=== PATIENT | female | born 1995 | race Two or more races ===

== ENCOUNTER 2016-12-16 09:38 | Emergency (ER) | payer OTHER ==
[2016-12-16 09:45] VITALS: BP 138/92; PULSE 96; BMI 19.2
--- NOTE | 2016-12-16 09:49 | PDOC ---
History of Present Illness - General History Source: Patient Exam Limitations: No Limitations - History of Present Illness Initial Comments: 12/16/16 10:01 The patient is a 21 year old female, with significant past medical history of pericarditis, who presents today worried she overdosed on motrin. The patient states that she accidentally took 2400mg of motrin. She thought that she took four 200mg tablets, but took four 600mg tablets instead. She reports some abdominal discomfort, but attributes it to her menstrual period. Denies fever, chills, nausea, vomiting. Allergies: None reported PCP- Dr. Lilian Garcia <Julianne Andrade - Last Filed: 12/16/16 10:01> <Neela Roman - Last Filed: 12/16/16 10:19> - General Chief Complaint: Overdose Stated Complaint: OVERDOSE Time Seen by Provider: 12/16/16 09:47 Past History <Julianne Andrade - Last Filed: 12/16/16 10:01> - Past Medical History Anemia: Yes Asthma: No Cancer: No Cardiac Disorders: No (PERICARDITIS) Diabetes: No HTN: No Seizures: No Thyroid Disease: No - Reproductive History (#): 1 Para: 1 - Immunization History Immunization Up to Date: Yes - Psycho/Social/Smoking Cessation Hx Anxiety: No Suicidal Ideation: No Smoking Status: No Smoking History: Never smoked Have you smoked in the past 12 months: No Number of Cigarettes Smoked Daily: 0 Information on smoking cessation initiated: No Hx Alcohol Use: No Drug/Substance Use Hx: No Substance Use Type: None Hx Substance Use Treatment: No <Neela Roman - Last Filed: 12/16/16 10:19> - Past Medical History Allergies/Adverse Reactions: Allergies Allergy/AdvReac Type Severity Reaction Status Date / Time No Known Allergies Allergy Verified 12/16/16 10:00 Home Medications: Ambulatory Orders Pantoprazole Sodium [Protonix -] 20 mg PO DAILY #30 tablet.ec 11/23/16 Colchicine 0.6 mg PO BID #28 tablet 11/25/16 Ibuprofen [Motrin -] 400 mg PO TID 11/30/16 Review of Systems - Review of Systems Able to Perform ROS?: Yes Comments:: 12/16/16 10:01 GENERAL/CONSTITUTIONAL: No fever or chills. No weakness. HEAD, EYES, EARS, NOSE AND THROAT: No change in vision. No ear pain or discharge. No sore throat. CARDIOVASCULAR: No chest pain or shortness of breath. RESPIRATORY: No cough, wheezing, or hemoptysis. GASTROINTESTINAL: No nausea, vomiting, diarrhea or constipation. SKIN: No rash NEUROLOGIC: No headache, vertigo, loss of consciousness, or change in strength/ sensation. <AlyssaallegraJulianne - Last Filed: 12/16/16 10:01> *Physical Exam - Vital Signs Last Vital Signs Temp Pulse Resp BP Pulse Ox 96 H 20 138/92 100 12/16/16 09:41 12/16/16 09:41 12/16/16 09:41 12/16/16 09:41 - Physical Exam Comments: 12/16/16 10:01 GENERAL: Awake, alert, and fully oriented, in no acute distress HEAD: No signs of trauma EYES: PERRLA, EOMI, sclera anicteric, conjunctiva clear ENT: Auricles normal inspection, hearing grossly normal, nares patent, oropharynx clear without exudates. Moist mucosa NECK: Normal ROM, supple, no lymphadenopathy, JVD, or masses LUNGS: Breath sounds equal, clear to auscultation bilaterally. No wheezes, and no crackles HEART: Regular rate and rhythm, normal S1 and S2, no murmurs, rubs or gallops ABDOMEN: Soft, nontender, normoactive bowel sounds. No guarding, no rebound. No masses EXTREMITIES: Normal range of motion, no edema. No clubbing or cyanosis. No cords, erythema, or tenderness NEUROLOGICAL: Cranial nerves II through XII grossly intact. Normal speech, normal gait SKIN: Warm, Dry, normal turgor, no rashes or lesions noted. <Julianne Andrade - Last Filed: 12/16/16 10:01> - Vital Signs Last Vital Signs Temp Pulse Resp BP Pulse Ox 96 H 20 138/92 100 12/16/16 09:41 12/16/16 09:41 12/16/16 09:41 12/16/16 09:41 <Neela Roman - Last Filed: 12/16/16 10:19> Medical Decision Making - Medical Decision Making As per recommendations from poison control, no acute intervention. I will give antacid for stomach irritation. <Neela Roman - Last Filed: 12/16/16 10:19> *DC/Admit/Observation/Transfer - Attestations Scribe Attestion: 12/16/16 10:02 Documentation prepared by LISA Ramesh, acting as medical secretary teacher for Neela Roman MD. <Julianne Andrade - Last Filed: 12/16/16 10:01> - Discharge Dispostion Admit: No <Neela Roman - Last Filed: 12/16/16 10:19> Diagnosis at time of Disposition: Ibuprofen overdose Qualifiers: Encounter type: initial encounter Injury intent: accidental or unintentional Qualified Code(s): T39.311A - Poisoning by propionic acid derivatives, accidental (unintentional), initial encounter - Discharge Dispostion Disposition: HOME Condition at time of disposition: Stable - Referrals Referrals: Lilian Gonzales MD [Primary Care Provider] - - Patient Instructions Printed Discharge Instructions: Ibuprofen Additional Instructions: PEPCID NEEDED FOR STOMACH IRRITATION. AVOID MOTRIN TODAY.
[2016-12-16] MEDS ORDERED: RANITIDINE HCL 150 MG TABLET (FP) PO ONE (10:01)
[2016-12-16] MEDS ORDERED: RANITIDINE HCL 150 MG TABLET (FP) ONE (10:08)
[2016-12-16 10:30] VITALS: TEMP 97.9
== END 2016-12-16 10:35 | disposition home or self-care (01) ==
LOC: JER 09:38
DX: T39.311A Poisoning by propionic acid derivatives, accidental (unintentional), initial encounter (principal); R10.9 Unspecified abdominal pain; Y92.038 Other place in apartment as the place of occurrence of the external cause
CPT/HCPCS: 99282-25

== ENCOUNTER → 2017-04-09 | Emergency (ER) | payer OTHER ==
[~2017-04-09] MED LIST: SODIUM CHLORIDE 1,000 ML IV STA
[2017-04-09 22:03] VITALS: BP 129/71; PULSE 77; TEMP 97.9; BMI 18.4
--- NOTE | 2017-04-09 22:50 | PDOC ---
History of Present Illness - General Chief Complaint: Pain Stated Complaint: CHEST PAIN Time Seen by Provider: 04/09/17 21:56 History Source: Patient - History of Present Illness Initial Comments: 04/10/17 00:22 21 yo female with a history of pericarditis presents to the emergency department complaining of substernal 4/10 dull nonradiating intermittent discomfort 3 hours. Pain is exacerbated on movement and alleviated at rest. Patient denies any headache, lightheadedness, dizziness, fever, chills, nausea/ vomiting/diarrhea, jaw pains, neck pains, shortness of breath, abdominal pains, flank pains, urinary symptoms. Patient states she was diagnosed with pericarditis in March 2017. She is currently under the care of her gill net stringer: Dr. Anya Del Rio. Patient usually takes ibuprofen or colchicine for her pericarditis. Patient states she notified her gill net stringer's and will have a follow-up tomorrow. Past History - Past Medical History Allergies/Adverse Reactions: Allergies Allergy/AdvReac Type Severity Reaction Status Date / Time lactose Allergy Severe Vomiting Verified 04/09/17 21:50 No Known Drug Allergies Allergy Verified 04/09/17 21:50 Home Medications: Ambulatory Orders Ferrous Sulfate [Feosol] 325 mg PO DAILY 04/09/17 Norgestimate-Ethinyl Estradiol [Sprintec 28 Day Tablet] 1 each PO DAILY Anemia: Yes (iron deficiency) Asthma: No Cancer: No Cardiac Disorders: Yes (Pericarditis 10/2016) Diabetes: No HTN: No Seizures: No Thyroid Disease: No - Reproductive History Is Patient Now?: No (#): 1 Para: 1 - Immunization History Immunization Up to Date: Yes - Psycho/Social/Smoking Cessation Hx Anxiety: No Suicidal Ideation: No Smoking Status: No Smoking History: Never smoked Have you smoked in the past 12 months: No Number of Cigarettes Smoked Daily: 0 Hx Alcohol Use: No Drug/Substance Use Hx: No Substance Use Type: None Hx Substance Use Treatment: No Review of Systems - Review of Systems Able to Perform ROS?: Yes Comments:: 04/10/17 00:24 CONSTITUTIONAL: Absent: fever, chills, diaphoresis, generalized weakness, malaise, loss of appetite HEENT: Absent: rhinorrhea, nasal congestion, throat pain, throat swelling, difficulty swallowing, mouth swelling, ear pain, eye pain, visual Changes CARDIOVASCULAR: +CP Absent: loss of consciousness, palpitations, irregular heart rate, peripheral edema RESPIRATORY: Absent: cough, shortness of breath, dyspnea with exertion, orthopnea, wheezing, stridor, hemoptysis GASTROINTESTINAL: Absent: abdominal pain, abdominal distension, nausea, vomiting, diarrhea, constipation, melena, hematochezia GENITOURINARY: Absent: dysuria, frequency, urgency, hesitancy, hematuria, flank pain, genital pain MUSCULOSKELETAL: Absent: myalgia, arthralgia, joint swelling SKIN: Absent: rash, itching, pallor HEMATOLOGIC/IMMUNOLOGIC: Absent: easy bleeding, easy bruising, lymphadenopathy, frequent infections ENDOCRINE: Absent: unexplained weight gain, unexplained weight loss, heat intolerance, cold intolerance NEUROLOGIC: Absent: headache, focal weakness or paresthesias, dizziness, unsteady gait, seizure, mental status changes, bladder or bowel incontinence PSYCHIATRIC: Absent: anxiety, depression, suicidal or homicidal ideation, hallucinations. Is the patient limited Yoruba proficient: No *Physical Exam - Vital Signs Last Vital Signs Temp Pulse Resp BP Pulse Ox 97.9 F 77 18 129/71 100 04/09/17 21:50 04/09/17 21:50 04/09/17 21:50 04/09/17 21:50 04/09/17 21:50 - Physical Exam Comments: 04/10/17 00:24 GENERAL: Well developed, well nourished. Awake and alert. No acute distress. HEENT: Normocephalic, atraumatic. PERRLA, EOMI. No conjunctival pallor. Sclera are non- icteric. Moist mucous membranes. Oropharynx is clear. NECK: Supple. Full ROM. No JVD. Carotid pulses 2+ and symmetric, without bruits. No thyromegaly. No lymphadenopathy. CARDIOVASCULAR Regular rate and rhythm. No murmurs, rubs, or gallops. Distal pulses are 2+ and symmetric. PULMONARY: No evidence of respiratory distress. Lungs clear to auscultation bilaterally. No wheezing, rales or rhonchi. ABDOMINAL: Soft. Non-tender. Non-distended. No rebound or guarding. No organomegaly. Normoactive bowel sounds. MUSCULOSKELETAL Normal range of motion at all joints. No bony deformities or tenderness. No CVA tenderness. EXTREMITIES: No cyanosis. No clubbing. No edema. No calf tenderness. SKIN: Warm and dry. Normal capillary refill. No rashes. No jaundice. NEUROLOGICAL: Alert, awake, appropriate. Cranial nerves 2-12 intact. No deficits to light touch and temperature in face, upper extremities and lower extremities. No motor deficits in the in face, upper extremities and lower extremities. Normoreflexic in the upper and lower extremities. Normal speech. Toes are down- going bilaterally. Gait is normal without ataxia. PSYCHIATRIC: Cooperative. Good eye contact. Appropriate mood and affect. ED Treatment Course - LABORATORY CBC & Chemistry Diagram: 04/09/17 23:15 04/09/17 23:15 - ADDITIONAL ORDERS Additional order review: Laboratory Results 04/09/17 04/09/17 23:15 23:15 Sodium 140 Potassium 4.0 Chloride 102 Carbon Dioxide 25 Anion Gap 13 BUN 10 D Creatinine 0.7 Creat Clearance w eGFR > 60 Random Glucose 82 Calcium 8.9 Total Bilirubin 0.3 D AST 19 D ALT 19 D Alkaline Phosphatase 89 D Creatine Kinase 81 Troponin I < 0.02 Total Protein 8.3 H Albumin 3.9 Urine Color Ltyellow Urine Appearance Clear Urine pH 6.0 Urine Protein Negative Urine Glucose (UA) Negative Urine Ketones Negative Urine Blood Negative Urine Nitrite Negative Urine Bilirubin Negative Urine Urobilinogen Negative Ur Leukocyte Esterase Trace H D Urine RBC <1 Urine WBC 9 Ur Epithelial Cells Rare Urine Mucus Rare Urine HCG, Qual Negative 04/09/17 23:15 RBC 3.49 L MCV 76.1 L MCHC 30.4 L RDW 17.1 H MPV 8.1 D Neutrophils % 67.5 Lymphocytes % 26.0 Monocytes % 5.6 Eosinophils % 0.4 Basophils % 0.5 - Medications Given in the ED: ED Medications Discontinued Medications Generic Name Dose Route Start Last Admin Trade Name Freq PRN Reason Stop Dose Admin Sodium Chloride 1,000 mls @ 1,000 mls/hr 04/09/17 22:53 04/09/17 23:13 Normal Saline - IV 04/09/17 23:52 1,000 mls/hr ASDIR STA Administration *DC/Admit/Observation/Transfer Diagnosis at time of Disposition: Atypical chest pain Anemia Qualifiers: Anemia type: other cause Other causes of anemia: other cause, not classified Qualified Code(s): D64.89 - Other specified anemias - Discharge Dispostion Disposition: HOME Condition at time of disposition: Stable Admit: No - Referrals Referrals: Lilian Gonzales MD [Primary Care Provider] - Jackie Olvera MD [Staff Physician] - - Patient Instructions Printed Discharge Instructions: DI for Atypical Chest Pain Additional Instructions: Be sure to follow-up with your gill net stringer: Dr. Anya Olvera tomorrow. ibuprofen as needed for painw. Return back to the emergency department for severe/persistent or worsening symptoms - Post Discharge Activity Work/School Note: Back to Work
[2017-04-09 23:28] LABS: BASOPHIL 0.5 % (0-2.0); EOSINOPHIL 0.4 % (0-4.5); MCH 23.1 pg (25.7-33.7); MCHC 30.4 g/dl (32.0-36.0); MEAN CELL VOLUME 76.1 fl (80-96); MEAN PLT VOLUME 8.1 fl (7.5-11.1); NEUTROPHILS 67.5 % (42.8-82.8); PLATELET COUNT 266 K/MM3 (134-434); RDW 17.1 % (11.6-15.6); WHITE BLOOD COUNT 5.2 K/mm3 (4.0-10.0)
[2017-04-09 23:32] LABS: URINE APPEARANCE CLEAR; URINE BILIRUBIN NEGATIVE (NEGATIVE); URINE BLOOD NEGATIVE (NEGATIVE); URINE COLOR LTYELLOW; URINE GLUCOSE (UA) NEGATIVE (NEGATIVE); URINE KETONE NEGATIVE (NEGATIVE); URINE LEUK ESTERASE TRACE (NEGATIVE); URINE NITRITE NEGATIVE (NEGATIVE); URINE PROTEIN NEGATIVE (NEGATIVE); URINE UROBILINOGEN NEGATIVE E.U./dl (0.2-1.0)
--- NOTE | 2017-04-09 23:32 | PDOC ---
*Physical Exam - Vital Signs Last Vital Signs Temp Pulse Resp BP Pulse Ox 97.9 F 77 18 129/71 100 04/09/17 21:50 04/09/17 21:50 04/09/17 21:50 04/09/17 21:50 04/09/17 21:50 ED Treatment Course - LABORATORY CBC & Chemistry Diagram: 04/09/17 23:15 04/09/17 23:15 Medical Decision Making - Medical Decision Making 04/09/17 23:30 agree with care from NARENDRA Martinez *DC/Admit/Observation/Transfer Diagnosis at time of Disposition: Atypical chest pain, Anemia - Discharge Dispostion Disposition: HOME Condition at time of disposition: Stable - Referrals Referrals: Jackie Olvera MD [Staff Physician] - Lilian Gonzales MD [Primary Care Provider] - - Patient Instructions Printed Discharge Instructions: DI for Atypical Chest Pain Additional Instructions: Be sure to follow-up with your safety supervisor: Dr. Anya Olvera tomorrow. ibuprofen as needed for painw. Return back to the emergency department for severe/persistent or worsening symptoms - Post Discharge Activity Work/School Note: Back to Work
[2017-04-09 23:37] LABS: URINE MUCUS RARE; URINE RBC <1 /hpf (0-3); URINE WBC 9 /hpf (3-5)
[2017-04-10 00:10] LABS: ALBUMIN 3.9 g/dl (3.4-5.0); ANION GAP 13 (8-16); BILIRUBIN,TOTAL 0.3 mg/dL (0.2-1.0); CALCIUM 8.9 mg/dL (8.5-10.1); CO2 25 mmol/L (21-32); CREATININE 0.7 mg/dL (0.55-1.02); GLUCOSE,RANDOM 82 mg/dL (74-106); SGOT/AST 19 U/L (15-37); SGPT/ALT 19 U/L (12-78); TOT PROT 8.3 g/dl (6.4-8.2)
[2017-04-10 00:12] LABS: ALK PHOS 89 U/L (45-117); TROPONIN I < 0.02 ng/ml (0.00-0.05)
--- NOTE | 2017-04-14 12:58 | EKG ---
Test Reason : Blood Pressure : / mmHG Vent. Rate : 081 BPM Atrial Rate : 081 BPM P-R Int : 142 ms QRS Dur : 082 ms QT Int : 372 ms P-R-T Axes : 076 060 040 degrees QTc Int : 432 ms NORMAL SINUS RHYTHM NONSPECIFIC T WAVE ABNORMALITY ABNORMAL ECG WHEN COMPARED WITH ECG OF 30-NOV-2016 15:46, NO SIGNIFICANT CHANGE WAS FOUND Confirmed by GURU WOLFE MD ([id number]) on 04/14/2017 12:57:47 PM Referred By: Confirmed By:GURU WOLFE MD
== END | disposition home or self-care (01) ==
LOC: JER 21:44
PROC: 3E0337Z Introduction of Electrolytic and Water Balance Substance into Peripheral Vein, Percutaneous Approach (ICD-10-PCS; principal; 2017-04-09)
DX: R07.89 Other chest pain (principal); I31.9 Disease of pericardium, unspecified; D50.8 Other iron deficiency anemias
CPT/HCPCS: 36415; 80053; 81003; 81015; 82550; 84484; 84703; 85025; 93005; 93010; 99282-25

== ENCOUNTER 2017-06-11 09:46 | Emergency (ER) | payer OTHER ==
[2017-06-11 10:00] VITALS: TEMP 98; BMI 19.0
--- NOTE | 2017-06-11 10:30 | PDOC ---
History of Present Illness - General Chief Complaint: Shortness of Breath Stated Complaint: CHEST PAIN Time Seen by Provider: 06/11/17 10:15 History Source: Patient - History of Present Illness Initial Comments: 06/11/17 11:24 Patient is a 21-year-old female with past medical history of anemia, who presents to the emergency department today complaining of shortness of breath and anxiety. Patient states that earlier this morning her boyfriend went missing after making suicidal comments. She became very anxious and nervous while the police were out finding him. . She states that her breathing became very rapid and she felt short of breath and lightheaded. Admits to chest pain as well. He was found a couple hours later and is being treated at a different facility at this time. She states that she feels better now that he is safe, but is still anxious. Denies fevers, chills, palpitations, wheezing, cough, recent illness, suicidal ideations. Past History - Travel Traveled outside of the country in the last 30 days: No Close contact w/someone who was outside of country & ill: No - Past Medical History Allergies/Adverse Reactions: Allergies Allergy/AdvReac Type Severity Reaction Status Date / Time lactose Allergy Severe Vomiting Verified 06/11/17 09:57 No Known Drug Allergies Allergy Verified 06/11/17 09:57 Home Medications: Ambulatory Orders Norgestimate-Ethinyl Estradiol [Sprintec 28 Day Tablet] 1 each PO DAILY Anemia: Yes (iron deficiency) Asthma: No Cancer: No Cardiac Disorders: Yes (Pericarditis 10/2016) Diabetes: No HTN: No Seizures: No Thyroid Disease: No - Reproductive History (#): 1 Para: 1 - Immunization History Immunization Up to Date: Yes - Psycho/Social/Smoking Cessation Hx Anxiety: No Suicidal Ideation: No Smoking Status: No Smoking History: Never smoked Have you smoked in the past 12 months: No Number of Cigarettes Smoked Daily: 0 Information on smoking cessation initiated: No Hx Alcohol Use: No Drug/Substance Use Hx: No Substance Use Type: None Hx Substance Use Treatment: No Review of Systems - Review of Systems Able to Perform ROS?: Yes Is the patient limited Turkish proficient: No Constitutional: Yes: Weakness. No: Chills, Fever, Malaise Respiratory: Yes: Shortness of Breath, SOB with Exertion, SOB at Rest. No: Wheezing Cardiac (ROS): Yes: Lightheadedness, Chest Tightness. No: Chest Pain, Irregular Heart Rate, Palpitations ABD/GI: No: Diarrhea, Nausea, Vomiting Psychiatric: Yes: Anxiety. No: Depression All Other Systems: Reviewed and Negative *Physical Exam - Vital Signs Last Vital Signs Temp Pulse Resp BP Pulse Ox 98.0 F 79 18 113/71 100 06/11/17 09:57 06/11/17 09:57 06/11/17 09:57 06/11/17 09:57 06/11/17 09:57 - Physical Exam General Appearance: Yes: Nourished, Appropriately Dressed, Mild Distress (Pt. appears mildly anxious, fast speech, fair eye contact. Speaking in full sentences Breathing easily O2 sat 100 on monitor) HEENT: positive: EOMI, DIO, Normal Voice. negative: Pharyngeal Erythema, Tonsillar Exudate, Tonsillar Erythema Respiratory/Chest: positive: Lungs Clear, Normal Breath Sounds. negative: Chest Tender, Respiratory Distress, Accessory Muscle Use, Rales, Rhonchi, Wheezing Cardiovascular: positive: Regular Rhythm, Regular Rate, S1, S2 (present). negative: Murmur ED Treatment Course - LABORATORY CBC & Chemistry Diagram: 06/11/17 10:51 06/11/17 10:51 Medical Decision Making - Medical Decision Making 06/11/17 11:30 Patient is a 21-year-old female with past medical history of anemia, who presents to the emergency department today complaining of shortness of breath and anxiety. Patient states that she feels better since arriving at the hospital now that she knows her boyfriend is safe. States that her anxiety is still present at this time. Will draw a CBC to evaluate her anemia. Pt. states her hbg is usually between 7-8. 1. CBC, CMP 2. EKG 3. Ativan, emotional support 4. Re-evaluate 06/11/17 12:46 All lab work is normal this time. Most probable anxiety attack stress of her situation last night. Patient is feeling better with the Ativan. Very overwhelmed with home and school work. Patient and I had a long discussion on mental health counseling and making time for herself. Instructed patient to follow up with her primary care doctor and her counselor tomorrow. Patient is safe to go home denies suicidal ideation homicidal ideation, depression and has no plan to commit suicide. Patient has a good support system. Discharge home at this time. *DC/Admit/Observation/Transfer Diagnosis at time of Disposition: Panic attack as reaction to stress - Discharge Dispostion Admit: No - Referrals Referrals: Lilian Gonzales MD [Primary Care Provider] - Call tomorrow Tate Antoine MD [Staff Physician] - - Patient Instructions Printed Discharge Instructions: DI for Anxiety -- Adult Additional Instructions: You had a panic attack today. It is important that you take time for self care and relaxation. Follow up with your primary care doctor and therapist tomorrow. It is important that you speak with them regarding your visit today. Your lab work today showed a low hemoglobin. You were given a referral for a shipfitter. Call to set up an appointment. Return to the ED if you have worsening panic attacks, anxiety, depression, or suicidal thoughts.
[2017-06-11] MEDS ORDERED: LORazepam 0.5 MG TABLET PO ONE (10:44)
[2017-06-11] MEDS ORDERED: LORazepam 0.5 MG TABLET ONE (10:49)
[2017-06-11 11:02] LABS: BASOPHIL 0.4 % (0-2.0); EOSINOPHIL 0.1 % (0-4.5); MCH 23.4 pg (25.7-33.7); MCHC 31.1 g/dl (32.0-36.0); MEAN PLT VOLUME 7.8 fl (7.5-11.1); NEUTROPHILS 70.8 % (42.8-82.8); PLATELET COUNT 182 K/MM3 (134-434); RDW 18.2 % (11.6-15.6); WHITE BLOOD COUNT 3.4 K/mm3 (4.0-10.0)
--- NOTE | 2017-06-11 11:07 | PDOC ---
Attending Attestation - Resident Resident Name: Elvira Patton - ED Attending Attestation I have performed the following: I have examined & evaluated the patient, The case was reviewed & discussed with the resident, I agree w/resident's findings & plan, Exceptions are as noted - HPI HPI: 21y F hx of anemia presenting with sob, although pt also notes that she has been ahvnig alot of personal stressors via her boyfriend. Pt denies any cp, fever/chills, cough, nor exertional symptoms, leg swelling, hemoptysis. pts exam esentially normal beside mild anxiety. no si/hi. pts labs reviewed, noted for mild anemia, but doubt this is the cause of her symptoms as this is her baseline. pt was dc with pmd fu feeling improved after anxiolytic. - Physicial Exam PE: 06/13/17 19:21 see above - Medical Decision Making 06/13/17 19:21 see above Heart Score/ECG Review - ECG Impressions Comment:: 06/11/17 11:09 Twelve-lead EKG was performed and reviewed by me. There is normal sinus rhythm with a normal rate. rate of 79 The axis is normal. The intervals are normal. There is normal R wave progression Nonspecifc t wave abnormality
[2017-06-11 11:34] LABS: ALBUMIN 3.5 g/dl (3.4-5.0); ANION GAP 9 (8-16); BILIRUBIN,TOTAL 0.6 mg/dL (0.2-1.0); CALCIUM 8.4 mg/dL (8.5-10.1); CO2 26 mmol/L (21-32); CREATININE 0.7 mg/dL (0.55-1.02); GLUCOSE,RANDOM 84 mg/dL (74-106); SGOT/AST 15 U/L (15-37); SGPT/ALT 15 U/L (12-78); TOT PROT 7.4 g/dl (6.4-8.2)
[2017-06-11 11:35] LABS: ALK PHOS 68 U/L (45-117)
[2017-06-11 14:20] VITALS: BP 128/77; PULSE 77
--- NOTE | 2017-06-12 13:12 | EKG ---
Test Reason : Blood Pressure : / mmHG Vent. Rate : 079 BPM Atrial Rate : 079 BPM P-R Int : 142 ms QRS Dur : 076 ms QT Int : 396 ms P-R-T Axes : 081 059 032 degrees QTc Int : 454 ms NORMAL SINUS RHYTHM NONSPECIFIC T WAVE ABNORMALITY ABNORMAL ECG WHEN COMPARED WITH ECG OF 09-APR-2017 21:53, NO SIGNIFICANT CHANGE WAS FOUND Confirmed by TITA CAVANAUGH MD ([id number]) on 06/12/2017 1:11:43 PM Referred By: Confirmed By:TITA CAVANAUGH MD
== END 2017-06-11 14:20 | disposition home or self-care (01) ==
LOC: JER 09:46
DX: F43.0 Acute stress reaction (principal); D64.9 Anemia, unspecified
CPT/HCPCS: 36415; 80053; 85025; 93005; 93010; 99284-25

== ENCOUNTER 2017-07-05 22:52 | Emergency (ER) | payer OTHER ==
[2017-07-05 23:07] VITALS: BP 112/68; PULSE 84; TEMP 98.1; BMI 18.4
--- NOTE | 2017-07-06 00:16 | PDOC ---
History of Present Illness - General History Source: Patient Exam Limitations: No Limitations <April Dong - Last Filed: 07/06/17 02:17> <Carlos Camacho - Last Filed: 07/06/17 02:50> - General Chief Complaint: Chest Pain Stated Complaint: CHEST PAIN Time Seen by Provider: 07/05/17 23:54 - History of Present Illness Initial Comments: 07/06/17 00:49 The patient is a 21 year old female, with a significant past medical history of Anemia, Pericarditis (10/2016) who presents to the emergency department with substernal chest pain today. Patient reports reproducible intermittent chest pain radiating to her L arm with associated cough and lightheadedness. Patient reports taking 800 mg Motrin today however denies relief. Patient states she experienced this pain when she was diagnosed with Pericarditis in Oct 2016 and presents to the ED for further evaluation. Note: Patient visited Dr. Morton (Workers' Compensation Claims Supervisor) earlier this week for the same complaint and was prescribed 800 Ibuprofen for pain relief. As per patient, she is due for echocardiogram next week. She denies fever, chills, abdominal pain, nausea, vomit, diarrhea or constipation. She denies dysuria, frequency, urgency or hematuria. Allergies: Lactose Past surgical history: None Social history:None PCP: Dr. Lilian Correa (April Dong) Past History <April Dong - Last Filed: 07/06/17 02:17> - Past Medical History Anemia: Yes (iron deficiency) Asthma: No Cancer: No Cardiac Disorders: Yes (Pericarditis 10/2016) Diabetes: No HTN: No Seizures: No Thyroid Disease: No - Reproductive History (#): 1 Para: 1 - Immunization History Immunization Up to Date: Yes - Psycho/Social/Smoking Cessation Hx Anxiety: No Suicidal Ideation: No Smoking Status: No Smoking History: Never smoked Have you smoked in the past 12 months: No Number of Cigarettes Smoked Daily: 0 Information on smoking cessation initiated: No Hx Alcohol Use: No Drug/Substance Use Hx: No Substance Use Type: None Hx Substance Use Treatment: No <Carlos Camacho - Last Filed: 07/06/17 02:50> - Past Medical History Allergies/Adverse Reactions: Allergies Allergy/AdvReac Type Severity Reaction Status Date / Time lactose Allergy Severe Vomiting Verified 07/05/17 23:05 No Known Drug Allergies Allergy Verified 07/05/17 23:05 Home Medications: Ambulatory Orders Norgestimate-Ethinyl Estradiol [Sprintec 28 Day Tablet] 1 each PO DAILY Tramadol HCl 50 mg PO TID #20 tablet MDD 3 07/06/17 Review of Systems - Review of Systems Able to Perform ROS?: Yes <April Dong - Last Filed: 07/06/17 02:17> <Carlos Camacho - Last Filed: 07/06/17 02:50> - Review of Systems Comments:: 07/06/17 00:49 CONSTITUTIONAL: No fever, no chills, no fatigue EYES: No visual changes ENT: No ear pain, no sore throat CARDIOVASCULAR: +chest pain. No palpitations RESPIRATORY: + cough. No SOB GI: No abdominal pain, no nausea, no vomiting, no constipation, no diarrhea GENITOURINARY: No dysuria, no frequency, no hematuria MUSKULOSKELETAL: No back pain, no joint pain, no myalgias SKIN: No rash NEURO: No headache (April Dong) *Physical Exam <April Dong - Last Filed: 07/06/17 02:17> <Carlos Camacho - Last Filed: 07/06/17 02:50> - Vital Signs Last Vital Signs Temp Pulse Resp BP Pulse Ox 98.1 F 84 20 112/68 100 07/05/17 23:06 07/05/17 23:06 07/05/17 23:06 07/05/17 23:06 07/05/17 23:06 - Physical Exam Comments: 07/06/17 00:49 CONSTITUTIONAL: Well-appearing; well-nourished; in no apparent distress HEAD: Normocephalic; atraumatic EYES: PERRL; EOM intact ENMT: External appears normal; normal oropharynx NECK: Supple; nontender; no cervical lymphadenopathy CARD: +Reproducible L parasternal chest tenderness to palpation. Normal S1, S2; no murmurs, rubs, or gallops RESP: Normal chest excursion with respiration; breath sounds clear and equal bilaterally; no wheezes, rhonchi, or rales ABD: Soft, non-distended; non-tender; no palpable organomegaly, no palpable hernias EXT: Normal ROM in all four extremities; non-tender to palpation; distal pulses intact SKIN: Warm, dry, no rash NEURO: No focal neurological deficiencies. (April Dong) ED Treatment Course - LABORATORY CBC & Chemistry Diagram: 07/06/17 00:59 07/06/17 00:59 <April Dong - Last Filed: 07/06/17 02:17> - LABORATORY CBC & Chemistry Diagram: 07/06/17 00:59 07/06/17 00:59 <Carlos Camacho - Last Filed: 07/06/17 02:50> - ADDITIONAL ORDERS Additional order review: Laboratory Results 07/06/17 07/06/17 07/06/17 02:05 00:59 00:59 INR 1.12 D-Dimer < 200 Sodium 138 Potassium 4.1 Chloride 104 Carbon Dioxide 27 Anion Gap 7 L BUN 9 D Creatinine 0.7 Creat Clearance w eGFR > 60 Random Glucose 98 Calcium 8.3 L Total Bilirubin 0.4 D AST 10 L D ALT 13 Alkaline Phosphatase 70 Creatine Kinase 41 Troponin I < 0.02 C-Reactive Protein 0.5 H D Total Protein 7.3 Albumin 3.3 L Urine HCG, Qual 07/05/17 23:08 INR D-Dimer Sodium Potassium Chloride Carbon Dioxide Anion Gap BUN Creatinine Creat Clearance w eGFR Random Glucose Calcium Total Bilirubin AST ALT Alkaline Phosphatase Creatine Kinase Troponin I C-Reactive Protein Total Protein Albumin Urine HCG, Qual Negative 07/06/17 00:59 RBC 3.18 L MCV 76.0 L MCHC 31.9 L RDW 19.5 H MPV 8.6 D Neutrophils % 62.1 Lymphocytes % 28.8 D Monocytes % 7.8 Eosinophils % 0.9 D Basophils % 0.4 - RADIOLOGY Radiology Studies Ordered: Category Date Time Status CHEST PA & LAT [RAD] Stat Radiology 07/06/17 00:36 Taken - Medications Given in the ED: ED Medications Discontinued Medications Generic Name Dose Route Start Last Admin Trade Name Freq PRN Reason Stop Dose Admin Tramadol HCl 50 mg 07/06/17 02:39 07/06/17 02:43 Ultram - PO 07/06/17 02:40 50 mg ONCE ONE Administration Medical Decision Making <April Dong - Last Filed: 07/06/17 02:17> <Carlos Camacho - Last Filed: 07/06/17 02:50> - Medical Decision Making 07/06/17 02:[address] Doug Webster. rate 84 bpm NSR Nonspecific T ave abnormality IL Interval 136 ms QRS Duration 80 ms QT/QTc 356/420 P-R-T axes 77 70 47 (April Dong) 07/06/17 02:41 Patient is well-appearing 21-year-old female with history of chronic anemia and recurrent pericarditis who presents to the ER with pleuritic left sided chest discomfort that is exacerbated by supine positioning and improved while sitting up. Patient reports that her symptoms are similar in nature to the episodes of pericarditis in the past. In the ER, patient is awake and alert, afebrile, hemodynamically stable. Physical exam reveals no evidence of pericardial friction rub. There is no JVD. EKG reveals no evidence of ST segment elevation or IL depression; chest x-ray reveals no evidence of cardiomegaly/effusion/ pneumothorax. Patient is a low probability for PE by Wells criteria. D-dimer was noted to be less than 200. Bedside echocardiogram revealed minimal anterior fluid only without evidence of right ventricular compromise. We'll administer tramadol for pain control. Will discharge with cardiology follow-up within the next 48-72 hours. (Carlos Camacho) *DC/Admit/Observation/Transfer <April Dong - Last Filed: 07/06/17 02:17> <Carlos Camacho - Last Filed: 07/06/17 02:50> Diagnosis at time of Disposition: Atypical chest pain - Discharge Dispostion Disposition: HOME Condition at time of disposition: Stable - Referrals Referrals: Lilian Gonzales MD [Primary Care Provider] - Jackie Olvera MD [Staff Physician] - - Patient Instructions Printed Discharge Instructions: DI for Atypical Chest Pain - Post Discharge Activity Work/School Note: Back to Work - Attestations Scribe Attestion: 07/06/17 00:50 Documentation prepared by April Dong, acting as medical editor for Carlos Camacho MD (April Dong) Physician Attestion: 07/06/17 02:41 The documentation was prepared by the scribe under my direct supervision. I have reviewed the documentation which correctly represents the findings, medical decision-making and critical action taken by me. (Carlos Camacho)
[2017-07-06 01:16] LABS: BASOPHIL 0.4 % (0-2.0); EOSINOPHIL 0.9 % (0-4.5); MCH 24.3 pg (25.7-33.7); MCHC 31.9 g/dl (32.0-36.0); MEAN PLT VOLUME 8.6 fl (7.5-11.1); NEUTROPHILS 62.1 % (42.8-82.8); PLATELET COUNT 195 K/MM3 (134-434); RDW 19.5 % (11.6-15.6); WHITE BLOOD COUNT 4.6 K/mm3 (4.0-10.0)
[2017-07-06 01:39] LABS: INR 1.12 (0.82-1.09); PROTHROMBIN TIME (PATIENT) 12.3 SEC (9.98-11.88)
[2017-07-06 02:06] LABS: ALBUMIN 3.3 g/dl (3.4-5.0); ALK PHOS 70 U/L (45-117); ANION GAP 7 (8-16); BILIRUBIN,TOTAL 0.4 mg/dL (0.2-1.0); C-REACTIVE PROTEIN 0.5 MG/DL (0.00-0.3); CALCIUM 8.3 mg/dL (8.5-10.1); CO2 27 mmol/L (21-32); CPK 41 IU/L (26-192); CREATININE 0.7 mg/dL (0.55-1.02); GLUCOSE,RANDOM 98 mg/dL (74-106); SGOT/AST 10 U/L (15-37); SGPT/ALT 13 U/L (12-78); TOT PROT 7.3 g/dl (6.4-8.2)
[2017-07-06 02:08] LABS: TROPONIN I < 0.02 ng/ml (0.00-0.05)
[2017-07-06] MEDS ORDERED: traMADol HCL 50 MG TABLET PO ONE (02:39)
[2017-07-06] MEDS ORDERED: traMADol HCL 50 MG TABLET ONE (02:41)
[2017-07-06 03:32] LABS: ERYTHROCYTE SEDIMENTATION RATE 14 mm/hr (0-20)
--- NOTE | 2017-07-07 13:42 | EKG ---
Test Reason : Blood Pressure : / mmHG Vent. Rate : 084 BPM Atrial Rate : 084 BPM P-R Int : 136 ms QRS Dur : 080 ms QT Int : 356 ms P-R-T Axes : 077 070 047 degrees QTc Int : 420 ms NORMAL SINUS RHYTHM NONSPECIFIC T WAVE ABNORMALITY ABNORMAL ECG WHEN COMPARED WITH ECG OF 11-JUN-2017 10:13, T WAVE VARIATION Confirmed by GURU WOLFE MD ([id number]) on 07/07/2017 1:42:15 PM Referred By: Confirmed By:GURU WOLFE MD
== END 2017-07-06 02:54 | disposition home or self-care (01) ==
LOC: JER 22:52
DX: R07.89 Other chest pain (principal); D50.9 Iron deficiency anemia, unspecified; Z86.79 Personal history of other diseases of the circulatory system
CPT/HCPCS: 36415; 71020-TC; 80053; 84484; 84703; 85025; 85379; 85610; 85651; 86140; 93005; 93010; 99283-25

== ENCOUNTER 2017-07-23 19:10 | Inpatient (IN) | payer OTHER ==
[2017-07-23 19:25] VITALS: BMI 18.0
[2017-07-23] MEDS ORDERED: SODIUM CHLORIDE 0.9% 1000 ML INFUS.BAG IV ONE (19:40)
[2017-07-23] MEDS ORDERED: morphine CARPU-JECT 4 MG/1 ML DISP.SYRIN IVPUSH ONE (19:40)
[2017-07-23 19:50] LABS: BASOPHIL 0.4 % (0-2.0); MCHC 31.2 g/dl (32.0-36.0); MEAN CELL VOLUME 76.9 fl (80-96); MEAN PLT VOLUME 9.2 fl (7.5-11.1); NEUTROPHILS 82.5 % (42.8-82.8); PLATELET COUNT 296 K/MM3 (134-434); RDW 19.5 % (11.6-15.6); WHITE BLOOD COUNT 9.3 K/mm3 (4.0-10.0)
[2017-07-23] MEDS ORDERED: morphine CARPU-JECT 2 MG/1 ML DISP.SYRIN ONE (20:16)
[2017-07-23 20:37] LABS: ALBUMIN 3.9 g/dl (3.4-5.0); ANION GAP 11 (8-16); BILIRUBIN,TOTAL 0.7 mg/dL (0.2-1.0); CALCIUM 8.9 mg/dL (8.5-10.1); CO2 26 mmol/L (21-32); CREATININE 0.9 mg/dL (0.55-1.02); GLUCOSE,RANDOM 130 mg/dL (74-106); SGOT/AST 13 U/L (15-37); SGPT/ALT 19 U/L (12-78); TOT PROT 8.2 g/dl (6.4-8.2)
[2017-07-23 20:38] LABS: ALK PHOS 76 U/L (45-117); URINE APPEARANCE TURBID; URINE BILIRUBIN NEGATIVE (NEGATIVE); URINE BLOOD 2+ (NEGATIVE); URINE COLOR AMBER; URINE GLUCOSE (UA) NEGATIVE (NEGATIVE); URINE KETONE NEGATIVE (NEGATIVE); URINE NITRITE NEGATIVE (NEGATIVE); URINE UROBILINOGEN NEGATIVE mg/dL (0.2-1.0)
[2017-07-23 20:53] LABS: URINE LEUK ESTERASE 3+ (NEGATIVE); URINE PROTEIN 3+ (NEGATIVE)
[2017-07-23 20:57] LABS: URINE MUCUS MANY; URINE RBC 498 /hpf (0-3); URINE WBC 1648 /hpf (3-5)
[2017-07-23] MEDS ORDERED: ACETAMINOPHEN 325 MG TABLET (FP) PO ONE (21:11)
[2017-07-23] MEDS ORDERED: ACETAMINOPHEN 325 MG TABLET (FP) ONE ×2 (21:11→21:40)
[2017-07-23] MEDS ORDERED: CEFTRIAXONE 2 GM in DEXTROSE 5%-WATER - 100 ML IVPB ONE (21:26)
[2017-07-23] MEDS ORDERED: CEFTRIAXONE 100 ML IVPB ONE (21:36)
[2017-07-23] MEDS ORDERED: ONDANSETRON 4 MG/2 ML VIAL IVPUSH ONE (22:17)
[2017-07-23] MEDS ORDERED: ONDANSETRON 4 MG/2 ML VIAL ONE (22:18)
--- NOTE | 2017-07-23 22:59 | PDOC ---
History of Present Illness - General Chief Complaint: Pain, Acute Stated Complaint: PAIN, ACUTE Time Seen by Provider: 07/23/17 19:39 History Source: Patient Exam Limitations: No Limitations - History of Present Illness Initial Comments: 07/23/17 22:54 The patient is a 21 F with a PMH of pericarditis who presents with R flank pain. The pain started yesterday and around [id number] today the pain worsened. She is also complaining of pressure in her bladder. She has no history of stones. This has never happened to her before. She also complains of chills. Denies vaginal bleeding/discharge. All: lactose SH: none LMP: last week Past History - Past Medical History Allergies/Adverse Reactions: Allergies Allergy/AdvReac Type Severity Reaction Status Date / Time lactose Allergy Severe Vomiting Verified 07/23/17 19:19 No Known Drug Allergies Allergy Verified 07/23/17 19:19 Home Medications: Ambulatory Orders Norgestimate-Ethinyl Estradiol [Sprintec 28 Day Tablet] 1 each PO DAILY Tramadol HCl 50 mg PO TID #20 tablet MDD 3 07/06/17 Anemia: Yes (iron deficiency) Asthma: No Cancer: No Cardiac Disorders: Yes (Pericarditis 10/2016) Diabetes: No HTN: No Seizures: No Thyroid Disease: No - Reproductive History Is Patient Now?: No (#): 1 Para: 1 - Immunization History Immunization Up to Date: Yes - Psycho/Social/Smoking Cessation Hx Anxiety: No Suicidal Ideation: No Smoking Status: No Smoking History: Never smoked Have you smoked in the past 12 months: No Number of Cigarettes Smoked Daily: 0 Information on smoking cessation initiated: No Hx Alcohol Use: No Drug/Substance Use Hx: No Substance Use Type: None Hx Substance Use Treatment: No Review of Systems - Review of Systems Able to Perform ROS?: Yes Is the patient limited Romansh proficient: No Constitutional: Yes: Chills. No: Fever Respiratory: Yes: Shortness of Breath Cardiac (ROS): Yes: Chest Pain ABD/GI: Yes: Nausea. No: Vomiting : Yes: Frequency, Flank Pain, Urgency. No: Burning, Dysuria, Discharge, Other (vaginal bleeding, vag discharge) Musculoskeletal: Yes: Back Pain Neurological: No: Numbness, Tingling, Weakness *Physical Exam - Vital Signs Last Vital Signs Temp Pulse Resp BP Pulse Ox 101.0 F H 108 H 20 108/69 100 07/23/17 20:12 07/23/17 20:00 07/23/17 19:20 07/23/17 20:00 07/23/17 19:20 - Physical Exam General Appearance: Yes: Nourished, Appropriately Dressed, Mild Distress HEENT: positive: Normal Voice, Hearing Grossly Normal Respiratory/Chest: positive: Lungs Clear, Normal Breath Sounds. negative: Chest Tender, Respiratory Distress, Accessory Muscle Use Cardiovascular: positive: Regular Rhythm, Regular Rate, S1, S2. negative: Diastolic Murmur, Systolic Murmur Gastrointestinal/Abdominal: positive: Tender (diffuse), Flat, Soft. negative: Distended, Guarding, Rebound, Tenderness Musculoskeletal: positive: CVA Tenderness, CVA Tenderness (R). negative: CVA Tenderness (L) Extremity: positive: Normal Inspection, Normal Range of Motion. negative: Swelling Integumentary: positive: Dry, Warm. negative: Pale, Cold, Clammy Neurologic: positive: Fully Oriented, Alert, Normal Mood/Affect ED Treatment Course - LABORATORY CBC & Chemistry Diagram: 07/23/17 19:40 07/23/17 19:40 - ADDITIONAL ORDERS Additional order review: Laboratory Results 07/23/17 07/23/17 07/23/17 19:40 19:40 19:40 Sodium 139 Potassium 4.0 Chloride 102 Carbon Dioxide 26 Anion Gap 11 BUN 11 D Creatinine 0.9 D Creat Clearance w eGFR > 60 Random Glucose 130 H D Lactic Acid 2.3 H* Calcium 8.9 Total Bilirubin 0.7 D AST 13 L D ALT 19 D Alkaline Phosphatase 76 Total Protein 8.2 Albumin 3.9 Serum , Qual Negative Urine Color [place] Urine Appearance Turbid Urine pH 7.0 Ur Specific [place] 1.025 Urine Protein 3+ H Urine Glucose (UA) Negative Urine Ketones Negative Urine Blood 2+ H Urine Nitrite Negative Urine Bilirubin Negative Urine Urobilinogen Negative Ur Leukocyte Esterase 3+ H D Urine RBC 498 Urine WBC 1648 Urine Mucus Many 07/23/17 19:40 RBC 3.74 MCV 76.9 L MCHC 31.2 L RDW 19.5 H MPV 9.2 Neutrophils % 82.5 D Lymphocytes % 12.1 D Monocytes % 5.0 Eosinophils % 0.0 D Basophils % 0.4 - RADIOLOGY Radiology Studies Ordered: Category Date Time Status SPIRAL- RENAL-STONE CT [CT] Stat CT Scan 07/23/17 20:19 Completed - Medications Given in the ED: ED Medications Discontinued Medications Generic Name Dose Route Start Last Admin Trade Name Ted PRN Reason Stop Dose Admin Acetaminophen 650 mg 07/23/17 21:11 07/23/17 21:33 Tylenol - PO 07/23/17 21:12 650 mg NOW ONE Administration Ceftriaxone Sodium 2 gm/ 100 mls @ 200 mls/hr 07/23/17 21:26 07/23/17 21:37 Dextrose IVPB 07/23/17 21:55 200 mls/hr ONCE ONE Administration Morphine Sulfate 4 mg 07/23/17 19:40 07/23/17 20:15 Morphine Injection - IVPUSH 07/23/17 19:41 4 mg ONCE ONE Administration Ondansetron HCl 4 mg 07/23/17 22:17 07/23/17 22:19 Zofran Injection IVPUSH 07/23/17 22:18 4 mg ONCE ONE Administration Sodium Chloride 1,000 ml 07/23/17 19:40 07/23/17 19:30 Normal Saline - IV 07/23/17 19:41 1,000 ml ONCE ONE Administration Medical Decision Making - Medical Decision Making 07/23/17 22:59 The patient is a 21F with a PMH of pericarditis who presents with R flank pain. The patient was initially hypotensive (95/50's). Fluids were started. Rocephin was given for suspected pyelo. Patient became normotensive. Remained febrile. Tylenol given for fever. Urine indicative of UTI, questionable pyelo. Temp 101F. Spiral CT shows obstruction but does not visualize stone. Spoke with Dr. Nuno and he accepts admission. Urology paged. 07/23/17 23:33 Spoke with urology on the phone. They agree with the plan and plan to see the patient in the AM. *DC/Admit/Observation/Transfer Diagnosis at time of Disposition: Pyelonephritis - Discharge Dispostion Condition at time of disposition: Stable Admit: Yes - Referrals Referrals: Lilian Gonzales MD [Primary Care Provider] -
[2017-07-23] MEDS ORDERED: ACETAMINOPHEN 1000 MG/100 ML VIAL (NON FORMULARY) IVPB ONE (23:19)
[2017-07-23] MEDS ORDERED: ACETAMINOPHEN INJECTION 100 ML IVPB ONE (23:20)
--- NOTE | 2017-07-24 00:45 | PDOC ---
Attending Attestation - Resident Resident Name: Hayder Stantonony - ED Attending Attestation I have performed the following: I have examined & evaluated the patient, The case was reviewed & discussed with the resident, I agree w/resident's findings & plan, Exceptions are as noted - HPI HPI: 07/24/17 00:40 21-year-old female with history of recurrent pericarditis presents via with atraumatic right flank pain, radiating anteriorly, with fevers, shaking chills, and lightheadedness prior to arrival. Patient also endorses history of intermittent dysuria and hematuria. - Physicial Exam PE: 07/23/17 22:30 Upon initial evaluation, patient is noted to be febrile and hypotensive with significant right CVA tenderness to palpation, mild right-sided abdominal tenderness to palpation, no evidence of guarding or rebound. There is no evidence of meningismus; lungs are noted to be clear; heart evaluation reveals mild tachycardia which appears regular. There is no evidence of petechial rash. 07/24/17 00:42 After period of observation, which included fluid resuscitation, IV antibiotic therapy and antipyretics, patient is noted to be afebrile, normotensive with a heart rate of 92. Persistent right CVA tenderness is noted. - Medical Decision Making 07/24/17 00:44 Patient is a 21-year-old female who presented with fever, shaking chills, dysuria, hematuria, and right flank pain; CBC is within normal limit. CMP reveals no evidence of acute renal insufficiency. Urinalysis reveals pyuria associated with hematuria. CT of abdomen and pelvis reveals mild to moderate hydronephrosis with proximal hydroureter. No radio opaque obstructive stones are identified. I suspect a case of acute pyelonephritis with a radiolucent and partially obstructing ureteral stone. Case has been discussed with Dr. rayna juan of urology. He agrees with the plan of care of admission for further antibiotic therapy, fluid resuscitation and evaluation. We'll admit to [facility]. Dr. Yanna Nuno informed and also agrees with the plan of car 07/24/17 01:10 pt noted to be transiently hypotensive, will administer iv fluids, will reascess
[2017-07-24] MEDS ORDERED: SODIUM CHLORIDE 500 ML IV STA (01:02)
[2017-07-24] MEDS ORDERED: SODIUM CHLORIDE 0.9% 1000 ML INFUS.BAG IV ONE (01:05)
[2017-07-24] MEDS ORDERED: morphine CARPU-JECT 2 MG/1 ML DISP.SYRIN IVPB ONE (09:45)
[2017-07-24] MEDS: SODIUM CHLORIDE 0.45% 1,000 ML IV SCH ×2 (10:16→20:20)
--- NOTE | 2017-07-24 10:22 | HP ---
Admitting History and Physical - Primary Care Physician PCP: Lilian Gonzales - Admission Chief Complaint: flank pain - right History of Present Illness: ER HISTORY - History of Present Illness Initial Comments: 07/23/17 22:54 The patient is a 21 F with a PMH of pericarditis who presents with R flank pain. The pain started yesterday and around [id number] today the pain worsened. She is also complaining of pressure in her bladder. She has no history of stones. This has never happened to her before. She also complains of chills. Denies vaginal bleeding/discharge. PT EXAMINED BY ME IN THE FLOORS Pt known to me from the office. She has h/o anemia, pericarditis- has been having right sided flank pain since Friday- it started as a mild dull pain which progressed to sharp severe pain yesterday, radiating to the pelvic area. Has pressure while urinating. Fever+chills+headaches+ pain was so severe , she felt like she was going to pass out. Came to the ER, received iv Ceftriaxone,. Morphine and fluids-- today better than yesterday . History Source: Patient Limitations to Obtaining History: No Limitations - Past Medical History Cardiovascular: Yes: Other (pericarditis) ...LMP: 04/03/17 ...: No Heme/Onc: Yes: Anemia - Past Surgical History Past Surgical History: Yes: None - Smoking History Smoking history: Never smoked Have you smoked in the past 12 months: No Aproximately how many cigarettes per day: 0 - Alcohol/Substance Use Hx Alcohol Use: No History of Substance Use: reports: None - Social History History of Recent Travel: No Home Medications - Allergies Allergies/Adverse Reactions: Allergies Allergy/AdvReac Type Severity Reaction Status Date / Time lactose Allergy Severe Vomiting Verified 07/23/17 19:19 No Known Drug Allergies Allergy Verified 07/23/17 19:19 - Home Medications Home Medications: Ambulatory Orders Norgestimate-Ethinyl Estradiol [Sprintec 28 Day Tablet] 1 each PO DAILY Review of Systems - Review of Systems Constitutional: reports: Chills, Fever. denies: Loss of Appetite Cardiovascular: denies: Chest Pain, Shortness of Breath Genitourinary: reports: Flank Pain, Frequency, Pain. denies: Burning, Discharge , Dysuria, Hematuria Physical Examination Vital Signs: Vital Signs Temperature 97.8 F 07/24/17 08:59 Pulse Rate 85 07/24/17 08:59 Respiratory Rate 16 07/24/17 08:59 Blood Pressure 100/60 07/24/17 08:59 O2 Sat by Pulse Oximetry (%) 99 07/24/17 02:55 Constitutional: Yes: No Distress, Calm Cardiovascular: Yes: Regular Rate and Rhythm Respiratory: Yes: CTA Bilaterally Gastrointestinal: Yes: Normal Bowel Sounds, Soft. No: Distention, Tenderness Renal/: Yes: CVA Tenderness - Right Edema: No Psychiatric: Yes: Alert, Oriented Labs: Laboratory Results - last 24 hr 07/23/17 07/23/17 07/23/17 19:40 19:40 19:40 WBC 9.3 D RBC 3.74 Hgb 9.0 L D Hct 28.7 L D MCV 76.9 L MCH 24.0 L MCHC 31.2 L RDW 19.5 H Plt Count 296 D MPV 9.2 Neutrophils % 82.5 D Lymphocytes % 12.1 D Monocytes % 5.0 Eosinophils % 0.0 D Basophils % 0.4 Sodium 139 Potassium 4.0 Chloride 102 Carbon Dioxide 26 Anion Gap 11 BUN 11 D Creatinine 0.9 D Creat Clearance w eGFR > 60 Random Glucose 130 H D Lactic Acid Calcium 8.9 Total Bilirubin 0.7 D AST 13 L D ALT 19 D Alkaline Phosphatase 76 Total Protein 8.2 Albumin 3.9 Serum , Qual Negative Urine Color [place] Urine Appearance Turbid Urine pH 7.0 Ur Specific [place] 1.025 Urine Protein 3+ H Urine Glucose (UA) Negative Urine Ketones Negative Urine Blood 2+ H Urine Nitrite Negative Urine Bilirubin Negative Urine Urobilinogen Negative Ur Leukocyte Esterase 3+ H D Urine RBC 498 Urine WBC 1648 Urine Mucus Many 07/23/17 07/24/17 19:40 01:30 WBC RBC Hgb Hct MCV MCH MCHC RDW Plt Count MPV Neutrophils % Lymphocytes % Monocytes % Eosinophils % Basophils % Sodium Potassium Chloride Carbon Dioxide Anion Gap BUN Creatinine Creat Clearance w eGFR Random Glucose Lactic Acid 2.3 H* 2.0 Calcium Total Bilirubin AST ALT Alkaline Phosphatase Total Protein Albumin Serum , Qual Urine Color Urine Appearance Urine pH Ur Specific [place] Urine Protein Urine Glucose (UA) Urine Ketones Urine Blood Urine Nitrite Urine Bilirubin Urine Urobilinogen Ur Leukocyte Esterase Urine RBC Urine WBC Urine Mucus Imaging - Results Cat Scan: Report Reviewed Problem List - Problems (1) Pyelonephritis Assessment/Plan: IV fluids @ 120cc/hr iv Ceftriaxone cultures pending pain control Urology evaluation Code(s): N12 - TUBULO-INTERSTITIAL NEPHRITIS, NOT SPCF ACUTE OR CHRONIC (2) Anemia Assessment/Plan: Has h/o heavy menstrual bleeds and iron deficiency Hb is actually better than her usual will monitor on Iron tabs Code(s): D64.9 - ANEMIA, UNSPECIFIED Qualifiers: Anemia type: other cause Other causes of anemia: other cause, not classified Qualified Code(s): D64.89 - Other specified anemias (3) Hydronephrosis Assessment/Plan: Urology eval iv fluids iv antibiotics no stone noted on CT abd/pelvis Code(s): N13.30 - UNSPECIFIED HYDRONEPHROSIS Qualifiers: Hydronephrosis type: with other ureteral stricture Qualified Code(s) : N13.1 - Hydronephrosis with ureteral stricture, not elsewhere classified (4) Pericarditis Assessment/Plan: h/o mild pericardial effusion no c/o chest pain stable for now normal EF DVT prophylaxis-- SCD Code(s): I31.9 - DISEASE OF PERICARDIUM, UNSPECIFIED Qualifiers: Pericarditis type: unspecified type Chronicity: chronic Qualified Code(s): - Assessment/Plan time spent -- 40 min for documentation , assessment, plan and coordination of care
[2017-07-24] MEDS ORDERED: DEXTROSE 5%-WATER - 50 ML IVPB ONE (11:37)
[2017-07-24] MEDS ORDERED: cefTRIAXone SODIUM 1 GM VIAL ONE (11:37)
[2017-07-24] MEDS: FERROUS SO4 325 MG TABLET (FP) PO SCH (11:40)
[2017-07-24] MEDS: CEFTRIAXONE 1 GM in DEXTROSE 5%-WATER - 50 ML IVPB SCH (11:40)
[2017-07-24] MEDS: ASCORBIC ACID 500 MG TABLET (FP) PO SCH (11:40)
--- NOTE | 2017-07-24 13:30 | CON.GU ---
Consult - History of Present Illness History of Present Illness: 21 yo female admitted with fever, rt flank pain, suprapubic pressure and positive UA. NCCT showed mild rt hydro but no stone. Currently pain better but still present and fever curve improving. No prior h/o recurrent uti, pyelo, or nephrolithiasis - Past Medical History Cardio/Vascular: Yes: Other (pericarditis) ...LMP: 04/03/17 ...: No - Past Surgical History Past Surgical History: Yes: None - Alcohol/Substance Use Hx Alcohol Use: No History of Substance Use: reports: None - Smoking History Smoking history: Never smoked Have you smoked in the past 12 months: No Aproximately how many cigarettes per day: 0 - Social History History of Recent Travel: No Home Medications - Allergies Allergies/Adverse Reactions: Allergies Allergy/AdvReac Type Severity Reaction Status Date / Time lactose Allergy Severe Vomiting Verified 07/23/17 19:19 No Known Drug Allergies Allergy Verified 07/23/17 19:19 - Home Medications Home Medications: Ambulatory Orders Norgestimate-Ethinyl Estradiol [Sprintec 28 Day Tablet] 1 each PO DAILY Physical Exam- Vital Signs: Vital Signs Temperature 97.8 F 07/24/17 08:59 Pulse Rate 85 07/24/17 08:59 Respiratory Rate 16 07/24/17 08:59 Blood Pressure 100/60 07/24/17 08:59 O2 Sat by Pulse Oximetry (%) 99 07/24/17 02:55 Renal/: Yes: CVA Tenderness - Right Imaging - Results Cat Scan: Report Reviewed Problem List - Problems (1) Pyelonephritis Assessment/Plan: recommend repeat scanning without and with IV contrast Code(s): N12 - TUBULO-INTERSTITIAL NEPHRITIS, NOT SPCF ACUTE OR CHRONIC
[2017-07-24] MEDS: morphine CARPU-JECT 2 MG/1 ML DISP.SYRIN IVPUSH PRN (15:48)
[2017-07-24] MEDS: ACETAMINOPHEN 325 MG TABLET (FP) PO PRN (20:21)
[2017-07-25] MEDS: SODIUM CHLORIDE 0.45% 1,000 ML IV SCH ×3 (04:00→22:27)
[2017-07-25] MEDS: ACETAMINOPHEN 325 MG TABLET (FP) PO PRN ×2 (05:54→10:17)
[2017-07-25 07:24] LABS: BASOPHIL 0.2 % (0-2.0); EOSINOPHIL 0.2 % (0-4.5); MCH 24.2 pg (25.7-33.7); MCHC 31.7 g/dl (32.0-36.0); MEAN CELL VOLUME 76.3 fl (80-96); MEAN PLT VOLUME 9.1 fl (7.5-11.1); NEUTROPHILS 82.2 % (42.8-82.8); PLATELET COUNT 212 K/MM3 (134-434); RDW 19.1 % (11.6-15.6)
[2017-07-25 07:53] LABS: ALBUMIN 2.7 g/dl (3.4-5.0); ANION GAP 8 (8-16); CO2 24 mmol/L (21-32); GLUCOSE,RANDOM 69 mg/dL (74-106)
[2017-07-25 07:57] LABS: ALK PHOS 62 U/L (45-117); BILIRUBIN,TOTAL 0.7 mg/dL (0.2-1.0); CREATININE 0.6 mg/dL (0.55-1.02); SGOT/AST 10 U/L (15-37); SGPT/ALT 14 U/L (12-78); TOT PROT 6.2 g/dl (6.4-8.2)
--- NOTE | 2017-07-25 10:00 | PN ---
Progress Note (short form) - Note Progress Note: pt seen/ examined feels better chart reviewed low grade temp denies abd pain/ flank pain or urinary burning today Vital Signs Temp 100.2 F H 07/25/17 05:51 Pulse 76 07/25/17 05:51 Resp 20 07/25/17 05:51 BP 100/60 07/25/17 05:51 Pulse Ox 100 07/24/17 20:08 Intake & Output 07/24/17 07/24/17 07/25/17 11:59 23:59 11:59 Intake Total 0 1050 1959 Balance 0 1050 1959 Weight 102 lb Intake: IV 600 1440 1/2 Normal Saline 1,231 491 5109 ml @ 120 mls/hr IV ASDIR [facility] Rx#:[id number] IVPB 0 150 Oral 300 520 Other: Voiding Method Toilet Toilet Toilet # Unmeasured Voids Void 2 2 Bowel Movement No Height 5 ft 3 in Body Mass Index (BMI) 18.0 Active Medications Acetaminophen (Tylenol -) 650 mg PO Q4H PRN PRN Reason: FEVER OR PAIN Last Admin: 07/25/17 05:54 Dose: 650 mg Ascorbic Acid (Vitamin C -) 500 mg PO DAILY [facility] Last Admin: 07/24/17 11:40 Dose: 500 mg Ferrous Sulfate (Feosol -) 325 mg PO DAILY [facility] Last Admin: 07/24/17 11:40 Dose: 325 mg Sodium Chloride (1/2 Normal Saline) 1,000 mls @ 120 mls/hr IV ASDIR [facility] Last Admin: 07/25/17 04:00 Dose: 120 mls/hr Ceftriaxone Sodium 1 gm/ (Dextrose) 50 mls @ 100 mls/hr IVPB DAILY [facility] Last Admin: 07/24/17 11:40 Dose: 100 mls/hr Morphine Sulfate (Morphine Injection -) 1 mg IVPUSH Q4H PRN PRN Reason: PAIN Last Admin: 07/24/17 15:48 Dose: 1 mg Ondansetron HCl (Zofran Injection) 4 mg IVPB Q6H PRN PRN Reason: NAUSEA CBC, BMP 07/25/17 06:00 07/25/17 06:00 ct abd/ pelvis-- pending Physical Exam Awake/ comfortable lungs- clear cvs- s1, s2 rrr abd - soft ext- no edema a/p better continue present care abx f/u cultures ct scan pending urology consult noted decrease in h/h-- likely dilutional monitor will follow discussed with nursing staff. Problem List - Problems (1) Hydronephrosis Code(s): N13.30 - UNSPECIFIED HYDRONEPHROSIS Qualifiers: Hydronephrosis type: with other ureteral stricture Qualified Code(s) : N13.1 - Hydronephrosis with ureteral stricture, not elsewhere classified (2) Pyelonephritis Code(s): N12 - TUBULO-INTERSTITIAL NEPHRITIS, NOT SPCF ACUTE OR CHRONIC (3) Abdominal pain Code(s): R10.9 - UNSPECIFIED ABDOMINAL PAIN Qualifiers: Abdominal location: lower abdomen Qualified Code(s): R10.30 - Lower abdominal pain, unspecified (4) Anemia Code(s): D64.9 - ANEMIA, UNSPECIFIED Qualifiers: Anemia type: other cause Other causes of anemia: other cause, not classified Qualified Code(s): D64.89 - Other specified anemias
[2017-07-25] MEDS ORDERED: DEXTROSE 5%-WATER - 50 ML IVPB ONE (10:04)
[2017-07-25] MEDS ORDERED: cefTRIAXone SODIUM 1 GM VIAL ONE (10:04)
[2017-07-25] MEDS: FERROUS SO4 325 MG TABLET (FP) PO SCH (10:17)
[2017-07-25] MEDS: CEFTRIAXONE 1 GM in DEXTROSE 5%-WATER - 50 ML IVPB SCH (10:17)
[2017-07-25] MEDS: ASCORBIC ACID 500 MG TABLET (FP) PO SCH (10:17)
--- NOTE | 2017-07-25 15:18 | CONSULT ---
Consult - text type - Consultation Consultation Note: The patient is a 21 F with a PMH of pericarditis who presents with R flank pain. She is also complaining of pressure in her bladder. She has no history of stones. This has never happened to her before. She also complains of chills. Denies vaginal bleeding/discharge. All: lactose SH: none LMP: last week Allergies/Adverse Reactions: Allergies Allergy/AdvReac Type Severity Reaction Status Date / Time lactose Allergy Severe Vomiting Verified 07/23/17 19:19 No Known Drug Allergies Allergy Verified 07/23/17 19:19 Home Medications: Ambulatory Orders Norgestimate-Ethinyl Estradiol [Sprintec 28 Day Tablet] 1 each PO DAILY Tramadol HCl 50 mg PO TID #20 tablet MDD 3 07/06/17 PMH Anemia: Yes (iron deficiency) Cardiac Disorders: Yes (Pericarditis 10/2016) - Psycho/Social/Smoking Cessation Hx Smoking History: Never smoked - Vital Signs Last Vital Signs Temp Pulse Resp BP Pulse Ox 98.1 F 73 18 95/58 100 07/25/17 13:28 07/25/17 13:28 07/25/17 13:28 07/25/17 13:28 07/25/17 09:00 Thin built HEENT-nl Cor: RSR, No murmurs, No gallops Lungs: Clear to P&A Abd: Soft, Normal bowel sounds, No organomegaly Ext:No significant edema Skin: No rashes, Integument intact Abnormal Lab Results 07/25/17 07/25/17 06:00 06:00 RBC 2.94 L D Hgb 7.1 L D Hct 22.4 L D MCV 76.3 L MCH 24.2 L MCHC 31.7 L RDW 19.1 H BUN 5 L D Random Glucose 69 L D Calcium 8.0 L AST 10 L D Total Protein 6.2 L D Albumin 2.7 L D Home Medication List Medication Instructions Recorded Confirmed Type Norgestimate-Ethinyl Estradiol 1 each PO DAILY 04/09/17 07/24/17 History [Sprintec 28 Day Tablet] Active Medications Generic Name Dose Route Start Last Admin Trade Name Freq PRN Reason Stop Dose Admin Acetaminophen 650 mg 07/24/17 10:20 07/25/17 10:17 Tylenol - PO 650 mg Q4H PRN Administration FEVER OR PAIN Ascorbic Acid 500 mg 07/24/17 11:00 07/25/17 10:17 Vitamin C - PO 500 mg DAILY [facility] Administration Ferrous Sulfate 325 mg 07/24/17 11:00 07/25/17 10:17 Feosol - PO 325 mg DAILY [facility] Administration Sodium Chloride 1,000 mls @ 120 mls/hr 07/24/17 09:30 07/25/17 12:51 1/2 Normal Saline IV 120 mls/hr ASDIR [facility] Administration Ceftriaxone Sodium 1 gm/ 50 mls @ 100 mls/hr 07/24/17 11:00 07/25/17 10:17 Dextrose IVPB 100 mls/hr DAILY [facility] Administration Morphine Sulfate 1 mg 07/24/17 10:56 07/24/17 15:48 Morphine Injection - IVPUSH 1 mg Q4H PRN Administration PAIN Ondansetron HCl 4 mg 07/24/17 10:20 07/25/17 15:26 Zofran Injection IVPB 4 mg Q6H PRN Administration NAUSEA A/P 21 y/o patient with menorrhagia, on control pills, child 1 yr. ago, recent pericardiis, comes in with rt. flank pain--noted to have acute pyeloneophritis Microcytic anemmia--ieon deficnecy from menorrhagia+ ? chronic disease checking iron studies screening tests Hgb 8,1--mildly symptomatic at this time Refusing blood transfusion. understands benefits/risks. Understands potentially serious consequences with severe anemia. Patient thinking about it and has not decided yet continue feosol. May need laxatives for constipation If unable to tolerate , or inadequate responseto PO iron will need IV iron Discussed about f/u with Dr. Townsend from [employer] [facility],
[2017-07-25] MEDS: ONDANSETRON 4 MG/2 ML VIAL IVPB PRN (15:26)
[2017-07-25] MEDS: morphine CARPU-JECT 2 MG/1 ML DISP.SYRIN IVPUSH PRN (22:28)
[2017-07-26] MEDS: ACETAMINOPHEN 325 MG TABLET (FP) PO PRN (06:38)
[2017-07-26 07:52] LABS: BASOPHIL 0.4 % (0-2.0); EOSINOPHIL 0.5 % (0-4.5); MCHC 31.3 g/dl (32.0-36.0); MEAN CELL VOLUME 76.6 fl (80-96); MEAN PLT VOLUME 9.3 fl (7.5-11.1); NEUTROPHILS 77.1 % (42.8-82.8); PLATELET COUNT 217 K/MM3 (134-434); RDW 19.5 % (11.6-15.6); WHITE BLOOD COUNT 6.5 K/mm3 (4.0-10.0)
[2017-07-26 07:56] LABS: ALBUMIN 2.9 g/dl (3.4-5.0); ANION GAP 7 (8-16); BILIRUBIN,TOTAL 0.4 mg/dL (0.2-1.0); CO2 28 mmol/L (21-32); CREATININE 0.7 mg/dL (0.55-1.02); GLUCOSE,RANDOM 77 mg/dL (74-106); SGOT/AST 8 U/L (15-37); SGPT/ALT 11 U/L (12-78); TOT PROT 6.4 g/dl (6.4-8.2)
[2017-07-26 07:57] LABS: ALK PHOS 68 U/L (45-117)
[2017-07-26 07:59] LABS: FREE T4 1.09 ng/dl (0.76-1.46)
[2017-07-26 08:04] LABS: FERRITIN 17.477 ng/ml (6.9-282.5); THYROID STIMULATING HORMONE 3.08 uIU/ml (0.358-3.74)
[2017-07-26] MEDS ORDERED: cefTRIAXone SODIUM 1 GM VIAL ONE (09:23)
[2017-07-26] MEDS ORDERED: DEXTROSE 5%-WATER - 50 ML IVPB ONE (09:23)
[2017-07-26] MEDS: CEFTRIAXONE 1 GM in DEXTROSE 5%-WATER - 50 ML IVPB SCH (09:25)
[2017-07-26] MEDS: FERROUS SO4 325 MG TABLET (FP) PO SCH (09:26)
[2017-07-26] MEDS: ASCORBIC ACID 500 MG TABLET (FP) PO SCH (09:26)
--- NOTE | 2017-07-26 09:36 | PN ---
Progress Note, Physician Chief Complaint: pain is less - Current Medication List Current Medications: Active Medications Acetaminophen (Tylenol -) 650 mg PO Q4H PRN PRN Reason: FEVER OR PAIN Last Admin: 07/26/17 06:38 Dose: 650 mg Ascorbic Acid (Vitamin C -) 500 mg PO DAILY [facility] Last Admin: 07/26/17 09:26 Dose: 500 mg Ferrous Sulfate (Feosol -) 325 mg PO DAILY [facility] Last Admin: 07/26/17 09:26 Dose: 325 mg Sodium Chloride (1/2 Normal Saline) 1,000 mls @ 120 mls/hr IV ASDIR [facility] Last Admin: 07/25/17 22:27 Dose: 120 mls/hr Ceftriaxone Sodium 1 gm/ (Dextrose) 50 mls @ 100 mls/hr IVPB DAILY [facility] Last Admin: 07/26/17 09:25 Dose: 100 mls/hr Morphine Sulfate (Morphine Injection -) 1 mg IVPUSH Q4H PRN PRN Reason: PAIN Last Admin: 07/25/17 22:28 Dose: 1 mg Ondansetron HCl (Zofran Injection) 4 mg IVPB Q6H PRN PRN Reason: NAUSEA Last Admin: 07/25/17 15:26 Dose: 4 mg - Objective Vital Signs: Vital Signs Temperature 99.3 F 07/26/17 05:00 Pulse Rate 83 07/26/17 05:00 Respiratory Rate 16 07/26/17 07:51 Blood Pressure 107/61 07/26/17 05:00 O2 Sat by Pulse Oximetry (%) 100 07/26/17 07:51 Constitutional: Yes: No Distress Cardiovascular: Yes: Regular Rate and Rhythm Respiratory: Yes: CTA Bilaterally Gastrointestinal: Yes: Normal Bowel Sounds, Soft. No: Tenderness Genitourinary: Yes: Other (rt flank pain) Edema: No Labs: CBC, BMP 07/26/17 06:00 07/26/17 06:00 Problem List - Problems (1) Pyelonephritis Assessment/Plan: IV fluids @ 120cc/hr iv Ceftriaxone cultures noted -- Ecoli pain control Urology evaluation appreciated-- repeat CT abd==no stone Code(s): N12 - TUBULO-INTERSTITIAL NEPHRITIS, NOT SPCF ACUTE OR CHRONIC (2) Anemia Assessment/Plan: Has h/o heavy menstrual bleeds and iron deficiency Hb is low-- refused PRBC transfusion if lower than 7 Hb, pt agreed for transfusion will monitor on Iron tabs Code(s): D64.9 - ANEMIA, UNSPECIFIED Qualifiers: Anemia type: other cause Other causes of anemia: other cause, not classified Qualified Code(s): D64.89 - Other specified anemias (3) Hydronephrosis Code(s): N13.30 - UNSPECIFIED HYDRONEPHROSIS Qualifiers: Hydronephrosis type: with other ureteral stricture Qualified Code(s) : N13.1 - Hydronephrosis with ureteral stricture, not elsewhere classified (4) Pericarditis Code(s): I31.9 - DISEASE OF PERICARDIUM, UNSPECIFIED Qualifiers: Pericarditis type: unspecified type Chronicity: chronic
[2017-07-26] MEDS: LACTOBACILLUS ACIDOPHILUS 1 EACH TAB (FP) PO SCH (11:33)
--- NOTE | 2017-07-26 11:48 | PN ---
Progress Note (short form) - Note Progress Note: feels better less flank pain no dysuria repeat CT-no obstruction resolving pyelo f/u prn Problem List - Problems (1) Pyelonephritis Code(s): N12 - TUBULO-INTERSTITIAL NEPHRITIS, NOT SPCF ACUTE OR CHRONIC
[2017-07-26] MEDS: SODIUM CHLORIDE 0.45% 1,000 ML IV SCH (14:59)
[2017-07-26] MEDS: ONDANSETRON 4 MG/2 ML VIAL IVPB PRN (21:25)
[2017-07-26] MEDS: morphine CARPU-JECT 2 MG/1 ML DISP.SYRIN IVPUSH PRN (22:52)
[2017-07-27 06:41] LABS: HEMATOCRIT 24.6 % (34.0-46.6)
[2017-07-27 06:41] LABS: SERUM IRON 9 ug/dL (27-159); TOTAL IRON BINDING CAPACITY 364 ug/dL (250-450); UIBC 355 ug/dL (131-425)
[2017-07-27] MEDS ORDERED: cefTRIAXone SODIUM 1 GM VIAL ONE (09:26)
[2017-07-27] MEDS ORDERED: DEXTROSE 5%-WATER - 50 ML IVPB ONE (09:27)
[2017-07-27] MEDS: LACTOBACILLUS ACIDOPHILUS 1 EACH TAB (FP) PO SCH (09:30)
[2017-07-27] MEDS: CEFTRIAXONE 1 GM in DEXTROSE 5%-WATER - 50 ML IVPB SCH (09:30)
[2017-07-27] MEDS: ASCORBIC ACID 500 MG TABLET (FP) PO SCH (09:30)
[2017-07-27] MEDS: FERROUS SO4 325 MG TABLET (FP) PO SCH (09:30)
[2017-07-27] MEDS: SODIUM CHLORIDE 0.45% 1,000 ML IV SCH (09:43)
--- NOTE | 2017-07-27 10:23 | PN ---
Progress Note, Physician - Current Medication List Current Medications: Active Medications Acetaminophen (Tylenol -) 650 mg PO Q4H PRN PRN Reason: FEVER OR PAIN Last Admin: 07/26/17 06:38 Dose: 650 mg Ascorbic Acid (Vitamin C -) 500 mg PO DAILY [facility] Last Admin: 07/27/17 09:30 Dose: 500 mg Ferrous Sulfate (Feosol -) 325 mg PO DAILY [facility] Last Admin: 07/27/17 09:30 Dose: 325 mg Sodium Chloride (1/2 Normal Saline) 1,000 mls @ 120 mls/hr IV ASDIR [facility] Last Admin: 07/27/17 09:43 Dose: 120 mls/hr Ceftriaxone Sodium 1 gm/ (Dextrose) 50 mls @ 100 mls/hr IVPB DAILY [facility] Last Admin: 07/27/17 09:30 Dose: 100 mls/hr Lactobacillus Acidophilus (Bacid -) 1 tab PO DAILY [facility] Last Admin: 07/27/17 09:30 Dose: 1 tab Morphine Sulfate (Morphine Injection -) 1 mg IVPUSH Q4H PRN PRN Reason: PAIN Last Admin: 07/26/17 22:52 Dose: 1 mg Ondansetron HCl (Zofran Injection) 4 mg IVPB Q6H PRN PRN Reason: NAUSEA Last Admin: 07/26/17 21:25 Dose: 4 mg - Objective Vital Signs: Vital Signs Temperature 98.6 F 07/27/17 08:58 Pulse Rate 81 07/27/17 08:58 Respiratory Rate 16 07/27/17 08:58 Blood Pressure 113/64 07/27/17 08:58 O2 Sat by Pulse Oximetry (%) 95 07/26/17 21:00 Labs: CBC, BMP 07/26/17 06:00 Problem List - Problems (1) Pyelonephritis Code(s): N12 - TUBULO-INTERSTITIAL NEPHRITIS, NOT SPCF ACUTE OR CHRONIC (2) Anemia Code(s): D64.9 - ANEMIA, UNSPECIFIED Qualifiers: Anemia type: other cause Other causes of anemia: other cause, not classified Qualified Code(s): D64.89 - Other specified anemias (3) Hydronephrosis Code(s): N13.30 - UNSPECIFIED HYDRONEPHROSIS Qualifiers: Hydronephrosis type: with other ureteral stricture Qualified Code(s) : N13.1 - Hydronephrosis with ureteral stricture, not elsewhere classified (4) Pericarditis Code(s): I31.9 - DISEASE OF PERICARDIUM, UNSPECIFIED Qualifiers: Pericarditis type: unspecified type Chronicity: chronic
[2017-07-27] MEDS ORDERED: SODIUM CHLORIDE 0.45% 1,000 ML IV SCH (10:49)
[2017-07-27] MEDS ORDERED: traMADol HCL 50 MG TABLET PO PRN (10:50)
[2017-07-27] MEDS ORDERED: POLYETHYLENE GLYCOL 3350 119 GM BTL PO SCH (11:00)
[2017-07-27 11:44] LABS: MCH 23.8 pg (25.7-33.7); MEAN CELL VOLUME 76.8 fl (80-96); MEAN PLT VOLUME 9.3 fl (7.5-11.1); PLATELET COUNT 199 K/MM3 (134-434); RDW 19.4 % (11.6-15.6); WHITE BLOOD COUNT 4.4 K/mm3 (4.0-10.0)
[2017-07-27 14:43] VITALS: BP 116/63; PULSE 82; TEMP 98.3
[2017-07-27] MEDS ORDERED: CEPHALEXIN MONOHYDRATE 500 MG CAPSULE (UD) PO SCH (22:00)
--- NOTE | 2017-07-27 22:49 | DS ---
Physical Examination Vital Signs: Vital Signs Temperature 98.3 F 07/27/17 14:41 Pulse Rate 82 07/27/17 14:41 Respiratory Rate 20 07/27/17 14:41 Blood Pressure 116/63 07/27/17 14:41 O2 Sat by Pulse Oximetry (%) 100 07/27/17 10:00 Labs: CBC, BMP 07/27/17 06:00 07/26/17 06:00 Discharge Summary Reason For Visit: PYELONEPHRITIS Condition: Improved - Instructions Referrals: Lilian Gonzales MD [Primary Care Provider] - Disposition: HOME - Home Medications Comprehensive Discharge Medication List: Ambulatory Orders Norgestimate-Ethinyl Estradiol [Sprintec 28 Day Tablet] 1 each PO DAILY Cephalexin Monohydrate [Keflex -] 500 mg PO BID #14 tab 07/27/17 Lactobacillus Acidophilus [Bacid -] 1 tab PO DAILY #10 tab 07/27/17 Tramadol HCl [Ultram -] 50 mg PO Q12H PRN #20 tablet MDD 2 07/27/17
[2017-07-29 14:12] LABS: Hgb A2 1.7 % (0.7-3.1)
== END 2017-07-27 15:54 | disposition home or self-care (01) | DRG 463 ==
LOC: JER 19:10 → JERBED 23:01 → UNDOADMIN 23:27 → JERBED 07-24 02:03 → J5S 07-24 02:03 → J7W 07-24 04:07
PROVIDERS: ADMIT Internal Medicine; ATTEND Internal Medicine
DX: N10 Acute pyelonephritis (principal); I95.9 Hypotension, unspecified; I31.9 Disease of pericardium, unspecified; N13.30 Unspecified hydronephrosis; N92.0 Excessive and frequent menstruation with regular cycle; D50.9 Iron deficiency anemia, unspecified
CPT/HCPCS: 36415; 74176; 74178-TC; 80053; 81003; 81015; 82607; 82728; 82747; 83021; 83540; 83550; 83605; 84439; 84443; 84703; 85014; 85025; 85027; 85660; 86922; 87040; 87086; 87186; 99284-25

== ENCOUNTER 2017-08-13 09:26 | Emergency (ER) | payer OTHER ==
[2017-08-13 09:30] VITALS: BP 128/91; PULSE 91; TEMP 98.4; BMI 18.6
[2017-08-13] MEDS ORDERED: SODIUM CHLORIDE 1,000 ML IV STA (10:12)
[2017-08-13] MEDS ORDERED: KETOROLAC TROMETHAMINE 30 MG/1 ML VIAL IVPUSH ONE (10:15)
[2017-08-13 10:23] LABS: BASOPHIL 0.8 % (0-2.0); EOSINOPHIL 0.5 % (0-4.5); MCH 23.9 pg (25.7-33.7); MCHC 31.3 g/dl (32.0-36.0); MEAN CELL VOLUME 76.4 fl (80-96); MEAN PLT VOLUME 8.3 fl (7.5-11.1); NEUTROPHILS 53.3 % (42.8-82.8); PLATELET COUNT 403 K/MM3 (134-434); RDW 19.5 % (11.6-15.6); WHITE BLOOD COUNT 4.5 K/mm3 (4.0-10.0)
[2017-08-13] MEDS ORDERED: KETOROLAC TROMETHAMINE 30 MG/1 ML VIAL ONE (10:23)
[2017-08-13] MEDS ORDERED: FLUCONAZOLE 50 MG TABLET PO ONE (10:29)
--- NOTE | 2017-08-13 10:29 | PDOC ---
History of Present Illness - General Chief Complaint: Pain Stated Complaint: LT SIDE BACK PAIN Time Seen by Provider: 08/13/17 09:41 History Source: Patient - History of Present Illness Timing/Duration: reports: constant, other (yesterday) Quality: reports: severe Abdominal Pain Onset Location: reports: flank Past History - Past Medical History Allergies/Adverse Reactions: Allergies Allergy/AdvReac Type Severity Reaction Status Date / Time lactose Allergy Severe Vomiting Verified 08/13/17 09:30 No Known Drug Allergies Allergy Verified 08/13/17 09:30 Home Medications: Ambulatory Orders Ciprofloxacin [Cipro -] 500 mg PO Q12H #14 tablet 08/13/17 Ferrous Gluconate [Iron] 325 mg PO DAILY 08/13/17 Fluconazole 150 mg PO ONCE #1 tablet 08/13/17 Ibuprofen [Motrin -] 600 mg PO QID #28 tablet 08/13/17 Anemia: Yes (iron deficiency) Asthma: No Cancer: No Cardiac Disorders: Yes (Pericarditis 10/2016) Diabetes: No HTN: No Seizures: No Thyroid Disease: No - Reproductive History (#): 1 Para: 1 - Immunization History Immunization Up to Date: Yes - Psycho/Social/Smoking Cessation Hx Anxiety: No Suicidal Ideation: No Smoking Status: No Smoking History: Never smoked Have you smoked in the past 12 months: No Number of Cigarettes Smoked Daily: 0 Hx Alcohol Use: No Drug/Substance Use Hx: No Substance Use Type: None Hx Substance Use Treatment: No Review of Systems - Review of Systems Constitutional: No: Chills, Fever, Malaise, Weakness ABD/GI: No: Nausea, Vomiting : Yes: Flank Pain. No: Dysuria, Discharge, Hematuria *Physical Exam - Vital Signs Last Vital Signs Temp Pulse Resp BP Pulse Ox 98.4 F 91 H 20 128/91 100 08/13/17 09:27 08/13/17 09:27 08/13/17 09:27 08/13/17 09:27 08/13/17 09:27 - Physical Exam General Appearance: Yes: Appropriately Dressed. No: Apparent Distress HEENT: positive: Normal Voice Neck: positive: Supple Respiratory/Chest: negative: Respiratory Distress Gastrointestinal/Abdominal: positive: Soft. negative: Tender Musculoskeletal: positive: CVA Tenderness (L) Extremity: positive: Normal Inspection Integumentary: positive: Dry, Warm Neurologic: positive: Fully Oriented, Alert, Normal Mood/Affect ED Treatment Course - LABORATORY CBC & Chemistry Diagram: 08/13/17 10:13 08/13/17 10:10 Medical Decision Making - Medical Decision Making 08/13/17 10:16 21-year-old female, history of anemia, non-compliant with iron pills, pericarditis, pyelonephritis, here with severe left flank pain since yesterday. No dysuria, hematuria, frequency, nausea, vomiting, fever or chills. Patient was admitted for right-sided pyelo demonstrated on CT approximately 2 weeks ago , tx w/ rocephin inhouse and discharged on keflex (sensitive on ucx). States current L flank pain similar to prior pyelo. Also c/o vaginal itching that started at some point after completed. Keflex. No vaginal discharge. No h/o STDs see exam R/o recurrent pyelo Stable and well jennifer w/ sig L CVAT -pain control -labs -dispo pending Vaginal itching No discharge S/p recent abx use Possible candidia -dose of diflucan in ED 08/13/17 11:10 Labs unremarkable w/ 2+ bld on ua, no nit/le. Will give dose of ceftriaxone and discuss dispo w/ PMD. Pt can m/l be tx as out-pt this time as no fever and no n/ v 08/13/17 11:[address] Lilian Garcia, who agrees that if patient stable, can be discharged to be treated as outpatient. M.D. recommending discharge with fluoroquinolones this time (levaquin sensitive on recent urine culture). Patient okay with plan and feels safe going home. Patient to follow up with PMD. Reasons to return discussed 08/13/17 11:34 08/13/17 11:36 *DC/Admit/Observation/Transfer Diagnosis at time of Disposition: Flank pain - Discharge Dispostion Disposition: HOME Condition at time of disposition: Improved - Prescriptions Prescriptions: Ciprofloxacin [Cipro -] 500 mg PO Q12H #14 tablet Fluconazole 150 mg PO ONCE #1 tablet Ibuprofen [Motrin -] 600 mg PO QID #28 tablet
[2017-08-13 10:36] LABS: URINE APPEARANCE SLCLOUDY; URINE BILIRUBIN NEGATIVE (NEGATIVE); URINE BLOOD 2+ (NEGATIVE); URINE COLOR YELLOW; URINE GLUCOSE (UA) NEGATIVE (NEGATIVE); URINE KETONE NEGATIVE (NEGATIVE); URINE NITRITE NEGATIVE (NEGATIVE); URINE PROTEIN NEGATIVE (NEGATIVE); URINE UROBILINOGEN NEGATIVE mg/dL (0.2-1.0)
[2017-08-13] MEDS ORDERED: FLUCONAZOLE 100 MG TABLET (UD) ONE (10:40)
[2017-08-13 10:47] LABS: ALBUMIN 4.4 g/dl (3.4-5.0); ALK PHOS 85 U/L (45-117); ANION GAP 9 (8-16); BILIRUBIN,TOTAL 0.7 mg/dL (0.2-1.0); CALCIUM 9.7 mg/dL (8.5-10.1); CO2 27 mmol/L (21-32); CREATININE 0.8 mg/dL (0.55-1.02); GLUCOSE,RANDOM 81 mg/dL (74-106); SGOT/AST 17 U/L (15-37); SGPT/ALT 22 U/L (12-78); TOT PROT 9.5 g/dl (6.4-8.2)
[2017-08-13 10:48] LABS: URINE MUCUS RARE; URINE RBC 1 /hpf (0-3); URINE WBC 23 /hpf (3-5)
[2017-08-13] MEDS ORDERED: CEFTRIAXONE 1 GM in DEXTROSE 5%-WATER - 50 ML IVPB ONE (11:07)
[2017-08-13] MEDS ORDERED: CEFTRIAXONE 50 ML ONE (11:09)
== END 2017-08-13 11:50 | disposition home or self-care (01) ==
LOC: JER 09:26
PROC: 3E0337Z Introduction of Electrolytic and Water Balance Substance into Peripheral Vein, Percutaneous Approach (ICD-10-PCS; principal; 2017-08-13)
PROC: 3E03329 Introduction of Other Anti-infective into Peripheral Vein, Percutaneous Approach (ICD-10-PCS; 2017-08-13)
PROC: 3E0333Z Introduction of Anti-inflammatory into Peripheral Vein, Percutaneous Approach (ICD-10-PCS; 2017-08-13)
DX: R10.32 Left lower quadrant pain (principal); L29.2 Pruritus vulvae; D50.8 Other iron deficiency anemias; Z91.14 Patient's other noncompliance with medication regimen; Z87.42 Personal history of other diseases of the female genital tract
CPT/HCPCS: 36415; 80053; 81003; 81015; 84703; 85025; 87086; 96361; 96365; 96375; 99283-25

== ENCOUNTER 2017-09-05 09:29 | Emergency (ER) | payer OTHER ==
[2017-09-05 09:34] VITALS: TEMP 98.3; BMI 18.4
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
[2017-09-05] MEDS ORDERED: LORazepam 1 MG TABLET PO ONE (10:31)
[2017-09-05 11:48] VITALS: BP 121/74; PULSE 79
== END 2017-09-05 11:48 | disposition home or self-care (01) ==
LOC: JER 09:29 → SUPCPDRO 09:29 → JER 11:48
DX: F41.1 Generalized anxiety disorder (principal); F43.0 Acute stress reaction; F43.10 Post-traumatic stress disorder, unspecified
CPT/HCPCS: 84703; 99282-25

== ENCOUNTER 2017-09-10 07:29 | Emergency (ER) | payer OTHER ==
[2017-09-10 07:46] VITALS: BMI 18.4
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
[2017-09-10 08:04] LABS: BASOPHIL 0.9 % (0-2.0); EOSINOPHIL 0.6 % (0-4.5); MCH 24.1 pg (25.7-33.7); MCHC 30.9 g/dl (32.0-36.0); MEAN CELL VOLUME 77.9 fl (80-96); MEAN PLT VOLUME 8.3 fl (7.5-11.1); NEUTROPHILS 57.2 % (42.8-82.8); PLATELET COUNT 253 K/MM3 (134-434); RDW 18.9 % (11.6-15.6); WHITE BLOOD COUNT 4.5 K/mm3 (4.0-10.0)
[2017-09-10 08:32] LABS: ALBUMIN 3.4 g/dl (3.4-5.0); ANION GAP 8 (8-16); CALCIUM 8.4 mg/dL (8.5-10.1); CO2 25 mmol/L (21-32); CREATININE 0.8 mg/dL (0.55-1.02); GLUCOSE,RANDOM 80 mg/dL (74-106); SGOT/AST 22 U/L (15-37); SGPT/ALT 30 U/L (12-78)
[2017-09-10 08:34] LABS: ALK PHOS 57 U/L (45-117); BILIRUBIN,TOTAL 0.7 mg/dL (0.2-1.0); TOT PROT 7.3 g/dl (6.4-8.2)
[2017-09-10 09:34] VITALS: BP 110/66; PULSE 80; TEMP 98
--- NOTE | 2017-09-11 12:00 | EKG ---
Test Reason : Blood Pressure : / mmHG Vent. Rate : 072 BPM Atrial Rate : 072 BPM P-R Int : 140 ms QRS Dur : 078 ms QT Int : 372 ms P-R-T Axes : 079 061 061 degrees QTc Int : 407 ms NORMAL SINUS RHYTHM SEPTAL INFARCT , AGE UNDETERMINED ABNORMAL ECG WHEN COMPARED WITH ECG OF 05-JUL-2017 23:02, SEPTAL INFARCT IS NOW PRESENT NONSPECIFIC T WAVE ABNORMALITY NO LONGER EVIDENT IN LATERAL LEADS Confirmed by AFSHAN HILL, TITA ([id number]) on 09/11/2017 11:59:26 AM Referred By: Confirmed By:TITA CAVANAUGH MD
== END 2017-09-10 09:34 | disposition home or self-care (01) ==
LOC: JER 07:29
DX: D64.9 Anemia, unspecified (principal); R07.9 Chest pain, unspecified; F32.9 Major depressive disorder, single episode, unspecified
CPT/HCPCS: 36415; 80053; 84703; 85025; 93005; 93010; 99284-25

== ENCOUNTER 2017-09-21 05:07 | Emergency (ER) | payer OTHER ==
[2017-09-21 05:20] VITALS: BMI 15.9
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
[2017-09-21 05:53] LABS: BASOPHIL 0.6 % (0-2.0); EOSINOPHIL 0.8 % (0-4.5); MCH 24.2 pg (25.7-33.7); MCHC 31.6 g/dl (32.0-36.0); MEAN CELL VOLUME 76.6 fl (80-96); MEAN PLT VOLUME 9.1 fl (7.5-11.1); NEUTROPHILS 58.7 % (42.8-82.8); PLATELET COUNT 265 K/MM3 (134-434); RDW 17.9 % (11.6-15.6); WHITE BLOOD COUNT 4.3 K/mm3 (4.0-10.0)
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
[2017-09-21 06:17] LABS: ALBUMIN 3.8 g/dl (3.4-5.0); ALK PHOS 62 U/L (45-117); ANION GAP 9 (8-16); BILIRUBIN,TOTAL 0.3 mg/dL (0.2-1.0); CO2 23 mmol/L (21-32); CREATININE 0.9 mg/dL (0.55-1.02); GLUCOSE,RANDOM 74 mg/dL (74-106); SGPT/ALT 24 U/L (12-78); TOT PROT 8.3 g/dl (6.4-8.2)
[2017-09-21 06:25] LABS: SGOT/AST 14 U/L (15-37)
--- NOTE | 2017-09-21 07:11 | PDOC ---
*Physical Exam - Vital Signs Last Vital Signs Temp Pulse Resp BP Pulse Ox 81 14 108/72 100 09/21/17 06:14 09/21/17 06:14 09/21/17 05:18 09/21/17 06:14 ED Treatment Course - LABORATORY CBC & Chemistry Diagram: 09/21/17 05:46 09/21/17 05:46 - ADDITIONAL ORDERS Additional order review: Laboratory Results 09/21/17 09/21/17 05:46 05:46 Sodium 142 Potassium 4.2 Chloride 110 H Carbon Dioxide 23 Anion Gap 9 BUN 10 Creatinine 0.9 Creat Clearance w eGFR > 60 Random Glucose 74 Calcium 8.0 L Total Bilirubin 0.3 D AST 14 L D ALT 24 Alkaline Phosphatase 62 Total Protein 8.3 H Albumin 3.8 Alcohol, Quantitative 238.0 H* 09/21/17 05:46 RBC 3.75 MCV 76.6 L MCHC 31.6 L RDW 17.9 H MPV 9.1 Neutrophils % 58.7 Lymphocytes % 30.9 Monocytes % 9.0 D Eosinophils % 0.8 Basophils % 0.6 Medical Decision Making - Medical Decision Making 09/21/17 07:10 Care taken over from Dr. Steven. 22 year old female with a history of anxiety and anemia who presented for evaluation of acute alcohol intoxication. Will reassess and evaluate patient's psychiatric symptoms. If stable, pt can be discharged. 09/21/17 10:27 Patient feels much better. Patient stable for discharge *DC/Admit/Observation/Transfer Diagnosis at time of Disposition: Alcoholic intoxication Qualifiers: Complication of substance-induced condition: uncomplicated Qualified Code(s): F10.920 - Alcohol use, unspecified with intoxication, uncomplicated; F10.920 - Alcohol use, unspecified with intoxication, uncomplicated; F10.920 - Alcohol use , unspecified with intoxication, uncomplicated - Discharge Dispostion Disposition: HOME Condition at time of disposition: Stable - Patient Instructions Additional Instructions: Follow up with your primary care provider. If you have chest pain, shortness of breath, or new/worsening symptoms please come back to the hospital immediately
[2017-09-21] MEDS ORDERED: ONDANSETRON 4 MG/2 ML VIAL IVPUSH ONE (08:21)
[2017-09-21 10:45] VITALS: BP 114/56; PULSE 87; TEMP 98.6
== END 2017-09-21 10:45 | disposition home or self-care (01) ==
LOC: JER 05:07
DX: F10.120 Alcohol abuse with intoxication, uncomplicated (principal); Y90.7 Blood alcohol level of 200-239 mg/100 ml; F41.9 Anxiety disorder, unspecified; D50.8 Other iron deficiency anemias
CPT/HCPCS: 36415; 80053; 80307; 84702; 85025; 99283-25

== ENCOUNTER 2017-12-08 09:25 | Emergency (ER) | payer OTHER ==
[2017-12-08 09:44] VITALS: BP 121/72; PULSE 119; TEMP 101.4; BMI 18.4
[2017-12-08] MEDS ORDERED: ACETAMINOPHEN 500 MG TABLET (FP) PO ONE (11:31)
[2017-12-08] MEDS ORDERED: ACETAMINOPHEN 500 MG TABLET (FP) ONE (11:33)
--- NOTE | 2017-12-08 11:35 | PDOC ---
History of Present Illness - General Chief Complaint: Cold Symptoms Stated Complaint: FEVER Time Seen by Provider: 12/08/17 10:50 History Source: Patient Exam Limitations: No Limitations - History of Present Illness Initial Comments: 12/08/17 11:30 Here with acute onset of sore throat pain yesterday which is progressively worsened to general body aches, headache pain, sore throat but no cough. States MAXIMUM TEMPERATURE was this morning 103. Has chronic anemia but does not complaint with taking iron tablets. States menses is been normal but uncertain as to status Timing/Duration: reports: just prior to arrival, getting worse Severity: reports: mild, moderate Associated Symptoms: reports: denies symptoms, cough, fever/chills, headache, muscle aches, nasal congestion, nasal drainage, sore throat Past History - Travel Traveled outside of the country in the last 30 days: No Close contact w/someone who was outside of country & ill: No - Past Medical History Allergies/Adverse Reactions: Allergies Allergy/AdvReac Type Severity Reaction Status Date / Time lactose Allergy Severe Vomiting Verified 12/08/17 09:41 No Known Drug Allergies Allergy Verified 12/08/17 09:41 Home Medications: Ambulatory Orders Azithromycin [Zithromax -] 250 mg PO UTDICT #6 tab 12/08/17 Anemia: Yes (iron deficiency) Asthma: No Cancer: No Cardiac Disorders: Yes (Pericarditis 10/2016) COPD: No Diabetes: No HTN: No Psychiatric Problems: Yes (ANXIETY.) Seizures: No Thyroid Disease: No - Reproductive History (#): 1 Para: 1 - Immunization History Immunization Up to Date: Yes - Suicide/Smoking/Psychosocial Hx Smoking Status: No Smoking History: Never smoked Have you smoked in the past 12 months: No Number of Cigarettes Smoked Daily: 0 Hx Alcohol Use: Yes (SOCIALLY.) Drug/Substance Use Hx: No Substance Use Type: Alcohol Hx Substance Use Treatment: No Respiratory Specific PMHX - Complaint Specific PMHX Bronchitis: No Pneumonia: No Review of Systems - Review of Systems Able to Perform ROS?: Yes Is the patient limited Persian proficient: Yes Constitutional: Yes: Symptoms Reported, See HPI, Chills, Fever, Loss of Appetite , Malaise, Weakness HEENTM: Yes: Symptoms Reported, See HPI, Nose Congestion Respiratory: Yes: Symptoms reported, See HPI. No: Cough, Shortness of Breath, Wheezing ABD/GI: Yes: Symptoms Reported, See HPI, Nausea. No: Vomiting Musculoskeletal: Yes: Symptoms Reported, Joint Swelling, Muscle Pain Integumentary: Yes: Symptoms Reported, See HPI, Pallor Neurological: Yes: Symptoms reported, See HPI, Headache All Other Systems: Reviewed and Negative *Physical Exam - Vital Signs Last Vital Signs Temp Pulse Resp BP Pulse Ox 101.4 F H 119 H 17 121/72 100 12/08/17 09:41 12/08/17 09:41 12/08/17 09:41 12/08/17 09:41 12/08/17 09:41 - Physical Exam General Appearance: Yes: Nourished, Appropriately Dressed, Apparent Distress, Moderate Distress HEENT: positive: DIO, TMs Normal (with extremely pale conjunctiva), Pharynx Normal, Muffled/Hoarse voice, Pharyngeal Erythema, Tonsillar Erythema, Rhinorrhea, Sinus Tenderness. negative: Tonsillar Exudate Neck: positive: Supple, Lymphadenopathy (R), Lymphadenopathy (L) Respiratory/Chest: positive: Lungs Clear, Normal Breath Sounds (course) Gastrointestinal/Abdominal: positive: Normal Bowel Sounds, Soft. negative: Tender Musculoskeletal: positive: Normal Inspection Extremity: positive: Normal Capillary Refill, Normal Inspection, Normal Range of Motion Integumentary: positive: Dry, Warm, Pale Neurologic: positive: surgical specialist II-XII NML intact, Fully Oriented, Alert, Normal Mood/ Affect, Normal Response, Motor Strength 5/5 Progress Note - Progress Note Progress Note: Influenza and rapid strep negative however patient clinically appears to have a pharyngitis and will treat with a Z-Tristian *DC/Admit/Observation/Transfer Diagnosis at time of Disposition: Pharyngitis Qualifiers: Pharyngitis/tonsillitis etiology: unspecified etiology Qualified Code(s): J02.9 - Acute pharyngitis, unspecified - Discharge Dispostion Disposition: HOME Condition at time of disposition: Stable Admit: No - Referrals Referrals: Lilian Gonzales MD [Primary Care Provider] - - Patient Instructions Printed Discharge Instructions: DI for Viral Upper Respiratory Infection -- Adult Additional Instructions: Rest, drink lots of fluids: Teas, water, soups, Pedialyte Saltwater gargles Steamy showers/seem to face break up mucus Avoid contact with others until fevers and cough resolved Lots of handwashing and good hygiene Continue [id number] medications for symptomatic relief Tylenol or Motrin for fever and pain Azithromycin as directed Followup with private physician in one to 2 days as needed Return to emergency department for worsened symptoms, fevers, dehydration - Post Discharge Activity Forms/Work/School Notes: Back to Work
== END 2017-12-08 13:05 | disposition home or self-care (01) ==
LOC: JERFT 09:25
DX: J02.9 Acute pharyngitis, unspecified (principal); F41.9 Anxiety disorder, unspecified; D50.9 Iron deficiency anemia, unspecified
CPT/HCPCS: 84703; 87070; 87430; 87804; 99281-25

== ENCOUNTER 2021-01-14 20:29 | Emergency (ER) | payer OTHER ==
[2021-01-14 20:40] VITALS: BP 134/77; PULSE 85; TEMP 98.1; BMI 18.1
== END 2021-01-14 21:29 | disposition home or self-care (01) ==
LOC: JER 20:29
DX: M25.531 Pain in right wrist (principal)
CPT/HCPCS: 73110-TC-RT-FY; 99284-25

== ENCOUNTER 2021-06-17 18:58 | Emergency (ER) | payer OTHER ==
[2021-06-17 19:05] VITALS: BP 121/89; PULSE 100; TEMP 98.4; BMI 19.3
[2021-06-17 20:02] LABS: COCAINE, UR NEGATIVE (NEGATIVE); METHADONE, UR NEGATIVE (NEGATIVE); OPIATES, URI NEGATIVE (NEGATIVE); URINE BENZODIAZEPINES NEGATIVE (NEGATIVE)
[2021-06-17 20:03] LABS: PHENCYCLIDINE,URINE NEGATIVE (NEGATIVE); URINE AMPHETAMINES NEGATIVE (NEGATIVE)
[2021-06-17 20:06] LABS: URINE BARBITURATES NEGATIVE (NEGATIVE)
== END 2021-06-17 21:00 | disposition home or self-care (01) ==
LOC: JER 18:58 → JERFT 18:58
DX: Z02.89 Encounter for other administrative examinations (principal)
CPT/HCPCS: 36415; 80307; 99282-25

== ENCOUNTER 2022-05-24 21:30 | Inpatient (IN) | payer OTHER ==
[2022-05-25] MEDS ORDERED: DEXTROSE 5%-LACTATED RINGERS 1,000 ML IV SCH
[2022-05-25 01:10] LABS: BASO % 0.3 % (0-2.0); EOS % 0.8 % (0-4.5); HEMATOCRIT 28.9 % (32.4-45.2); HEMOGLOBIN 9.6 GM/dL (10.7-15.3); LYMPH % 21.9 % (8-40); MCH 30.7 pg (25.7-33.7); MCHC 33.1 g/dl (32.0-36.0); MEAN CELL VOLUME 92.6 fl (80-96); MONO % 7.6 % (3.8-10.2); NEUT % 69.4 % (42.8-82.8); PLATELET COUNT 162 10^3/uL (134-434); RBC 3.12 M/mm3 (3.60-5.2); RDW 13.6 % (11.6-15.6); WHITE BLOOD COUNT 6.1 K/mm3 (4.0-10.0)
[2022-05-25 01:26] VITALS: BMI 21.2
[2022-05-25 01:30] LABS: CALCIUM 8.7 mg/dL (8.5-10.1)
[2022-05-25 01:32] LABS: BLOOD UREA NITROGEN 3.9 mg/dL (7-18)
[2022-05-25 01:34] LABS: CREATININE 0.5 mg/dL (0.55-1.3)
[2022-05-25 01:36] LABS: INR 0.97 (0.83-1.09); PROTHROMBIN TIME (PATIENT) 11.2 SEC (9.7-13.0)
[2022-05-25 01:38] LABS: ACTIVATED PTT 26.1 SECONDS (25.2-36.5)
[2022-05-25] MEDS ORDERED: PROMETHAZINE HCL 25 MG/1 ML VIAL ONE (04:48)
[2022-05-25] MEDS ORDERED: BUTORPHANOL TARTRATE 1 MG/ML VIAL ONE (04:48)
[2022-05-25] MEDS ORDERED: BUTORPHANOL TARTRATE 1 MG/ML VIAL IVPB ONE (04:59)
[2022-05-25] MEDS ORDERED: PROMETHAZINE HCL 25 MG/1 ML VIAL IVPB ONE (04:59)
[2022-05-25] MEDS ORDERED: ELECTROLYTE-148 SOLN 1,000 ML IV SCH (05:00)
[2022-05-25] MEDS ORDERED: OXYTOCIN 30 UNITS in 0.9% NS 30 UNIT/500 ML INFUS.BAG IVPB SCH (05:00)
[2022-05-25] MEDS ORDERED: OXYTOCIN 30 UNITS in 0.9% NS 30 UNIT/500 ML INFUS.BAG IVPB ONE (05:39)
[2022-05-25] MEDS ORDERED: OXYTOCIN 20 UNITS in 0.9% NS 20 UNIT/1,000 ML INFUS.BAG IV ONE (09:34)
[2022-05-25] MEDS ORDERED: BENZOCAINE 20% 57 GM BOTTLE TP PRN (10:00)
[2022-05-25] MEDS ORDERED: OXYTOCIN 20 UNITS in 0.9% NS 20 UNIT/1,000 ML INFUS.BAG IV SCH (10:00)
[2022-05-25] MEDS ORDERED: BENZOCAINE 28 GM HEMORRHOIDAL OINTMENT TP PRN (10:00)
[2022-05-25] MEDS ORDERED: oxyCODONE HCL 5 MG TABLET PO PRN (10:00)
[2022-05-25] MEDS ORDERED: METHYLERGONOVINE MALEATE 0.2 MG/1 ML AMP IM PRN (10:00)
[2022-05-25] MEDS ORDERED: WITCH HAZEL 50% (TUCKS) 40 PAD/JAR PAD TP PRN (10:00)
[2022-05-25] MEDS ORDERED: BISACODYL 10 MG SUPP.RECT RC PRN (10:00)
[2022-05-25] MEDS ORDERED: ACETAMINOPHEN 325 MG TABLET (FP) PO PRN (10:00)
[2022-05-25] MEDS: IBUPROFEN 600 MG TABLET (FP) PO PRN ×2 (11:25→17:45)
[2022-05-25] MEDS: PRENATAL VITAMINS W/ FOLIC ACID TABLET (FP) PO SCH (11:25)
[2022-05-26 09:05] LABS: BASO % 0.3 % (0-2.0); EOS % 0.7 % (0-4.5); HEMATOCRIT 27.4 % (32.4-45.2); MCH 30.7 pg (25.7-33.7); MEAN PLT VOLUME 9.5 fl (7.5-11.1); MONO % 5.1 % (3.8-10.2); NEUT % 77.9 % (42.8-82.8); PLATELET COUNT 166 10^3/uL (134-434); RBC 2.94 M/mm3 (3.60-5.2); RDW 13.4 % (11.6-15.6); WHITE BLOOD COUNT 8.2 K/mm3 (4.0-10.0)
[2022-05-26] MEDS: PRENATAL VITAMINS W/ FOLIC ACID TABLET (FP) PO SCH (10:13)
[2022-05-26] MEDS ORDERED: SENNOSIDES/DOCUSATE COMBO (SENNA PLUS) TABLET (UD) PO PRN (22:00)
[2022-05-27 09:09] VITALS: BP 122/79; PULSE 68; TEMP 98.2
[2022-05-27] MEDS: PRENATAL VITAMINS W/ FOLIC ACID TABLET (FP) PO SCH (09:25)
[2022-05-27] MEDS: IBUPROFEN 600 MG TABLET (FP) PO PRN (09:25)
== END 2022-05-27 17:50 | disposition home or self-care (01) | DRG 560 ==
LOC: JDEL 21:30 → JLDR 05-25 → J3W 05-25 11:15
PROVIDERS: ADMIT Obstetrics & Gynecology; ATTEND Obstetrics & Gynecology
PROC: 10E0XZZ Delivery of Products of Conception, External Approach (ICD-10-PCS; principal; 2022-05-25)
DX: O80 Encounter for full-term uncomplicated delivery (principal); Z3A.38 38 weeks gestation of pregnancy; Z37.0 Single live birth
CPT/HCPCS: 36415; 59025; 59409; 80048; 85025; 85610; 85730; 86780; 86850; 86900; 86901; C9803-CS; U0003; U0005

== ENCOUNTER 2024-03-06 08:00 | Inpatient (IN) | payer OTHER ==
[2024-03-06] MEDS: ELECTROLYTE-148 SOLN 1,000 ML IV SCH (08:50)
[2024-03-06 09:21] VITALS: BMI 23.3
[2024-03-06] MEDS: OXYTOCIN 30 UNITS in 0.9% NS 30 UNIT/500 ML INFUS.BAG IVPB SCH (09:45)
[2024-03-06 09:59] LABS: BASO % 0.5 % (0-2.0); EOS % 0.3 % (0-4.5); HEMATOCRIT 28.2 % (32.4-45.2); HEMOGLOBIN 8.9 GM/dL (10.7-15.3); LYMPH % 24.5 % (8-40); MCH 28.1 pg (25.7-33.7); MCHC 31.7 g/dl (32.0-36.0); MEAN CELL VOLUME 88.7 fl (80-96); MEAN PLT VOLUME 8.4 fl (7.5-11.1); NEUT % 68.7 % (42.8-82.8); PLATELET COUNT 215 10^3/uL (134-434); RBC 3.18 M/mm3 (3.60-5.2); RDW 19.8 % (11.6-15.6); WHITE BLOOD COUNT 6.8 K/mm3 (4.0-10.0)
[2024-03-06 10:05] LABS: INR 1.01 (0.83-1.09); PROTHROMBIN TIME (PATIENT) 11.7 SEC (9.7-13.0)
[2024-03-06 10:08] LABS: ACTIVATED PTT 25.8 SECONDS (25.2-36.5)
[2024-03-06 10:23] LABS: POTASSIUM 3.8 mmol/L (3.5-5.1)
[2024-03-06 10:25] LABS: CALCIUM 8.7 mg/dL (8.5-10.1)
[2024-03-06 10:26] LABS: BLOOD UREA NITROGEN 8.7 mg/dL (7-18)
[2024-03-06 10:29] LABS: CREATININE 0.6 mg/dL (0.55-1.3)
[2024-03-06] MEDS ORDERED: PROMETHAZINE HCL 25 MG/1 ML VIAL ONE (12:04)
[2024-03-06] MEDS ORDERED: BUTORPHANOL TARTRATE 2 MG/ML VIAL ONE (12:04)
[2024-03-06] MEDS: PROMETHAZINE HCL 25 MG/1 ML VIAL IVPB ONE (12:10)
[2024-03-06] MEDS: BUTORPHANOL TARTRATE 2 MG/ML VIAL IVPB ONE (12:10)
[2024-03-06] MEDS ORDERED: LIDOCAINE HCL 1% PRESERVATIVE FREE - 30ML VIAL ONE (13:29)
[2024-03-06] MEDS ORDERED: OXYTOCIN 20 UNITS in 0.9% NS 20 UNIT/1,000 ML INFUS.BAG IV ONE (13:29)
[2024-03-06] MEDS: OXYTOCIN 20 UNITS in 0.9% NS 20 UNIT/1,000 ML INFUS.BAG IV SCH (13:52)
[2024-03-06] MEDS ORDERED: METHYLERGONOVINE MALEATE 0.2 MG/1 ML AMP IM PRN (14:06)
[2024-03-06] MEDS ORDERED: BISACODYL 10 MG SUPP.RECT RC PRN (14:06)
[2024-03-06 14:16] LABS: CORD BASE EXCESS -5.8 mmol/L (0-2); CORD HCO3 22.9 mmHg (20-29); CORD PCO2 57.5 mmHg (30-78); CORD pH 7.218 (7.14-7.44)
[2024-03-06 14:17] LABS: CORD BASE EXCESS -2.8 mmol/L (0-2); CORD HCO3 24.5 mmHg (20-29); CORD PCO2 51.7 mmHg (30-78); CORD pH 7.293 (7.14-7.44)
[2024-03-06] MEDS ORDERED: ACETAMINOPHEN 325 MG TABLET (FP) ONE (16:24)
[2024-03-06] MEDS: ACETAMINOPHEN 325 MG TABLET (FP) PO PRN (16:30)
[2024-03-06] MEDS: BENZOCAINE 20% 57 GM BOTTLE TP PRN (17:39)
[2024-03-07 01:52] VITALS: PULSE 96
[2024-03-07] MEDS: IBUPROFEN 600 MG TABLET (FP) PO PRN (06:15)
[2024-03-07] MEDS: BENZOCAINE 28 GM HEMORRHOIDAL OINTMENT TP PRN (06:15)
[2024-03-07] MEDS: WITCH HAZEL 50% (TUCKS) 40 PAD/JAR PAD TP PRN (06:16)
[2024-03-07 07:03] LABS: BASO % 0.2 % (0-2.0); EOS % 0.4 % (0-4.5); HEMATOCRIT 24.9 % (32.4-45.2); LYMPH % 12.9 % (8-40); MCH 28.6 pg (25.7-33.7); MCHC 32.3 g/dl (32.0-36.0); MEAN CELL VOLUME 88.5 fl (80-96); MEAN PLT VOLUME 8.1 fl (7.5-11.1); MONO % 4.5 % (3.8-10.2); PLATELET COUNT 202 10^3/uL (134-434); RBC 2.81 M/mm3 (3.60-5.2); RDW 19.2 % (11.6-15.6); WHITE BLOOD COUNT 9.6 K/mm3 (4.0-10.0)
[2024-03-07] MEDS: FERROUS SO4 325 MG TABLET (FP) PO SCH (10:01)
[2024-03-07] MEDS: PRENATAL VITAMINS W/ FOLIC ACID TABLET (FP) PO SCH (10:01)
[2024-03-07] MEDS: SENNOSIDES/DOCUSATE COMBO (SENNA PLUS) TABLET (UD) PO PRN (22:20)
[2024-03-08 10:11] VITALS: BP 115/81; RESP 16; TEMP 98.3
== END 2024-03-08 13:00 | disposition home or self-care (01) | DRG 560 ==
LOC: JLDR 08:00 → J3W 16:50
PROVIDERS: ADMIT Obstetrics & Gynecology; ATTEND Obstetrics & Gynecology
PROC: 10E0XZZ Delivery of Products of Conception, External Approach (ICD-10-PCS; principal; 2024-03-06)
PROC: 0HQ9XZZ Repair Perineum Skin, External Approach (ICD-10-PCS; 2024-03-06)
PROC: 10907ZC Drainage of Amniotic Fluid, Therapeutic from Products of Conception, Via Natural or Artificial Opening (ICD-10-PCS; 2024-03-06)
DX: O70.0 First degree perineal laceration during delivery (principal); Z3A.39 39 weeks gestation of pregnancy; Z37.0 Single live birth
CPT/HCPCS: 36415; 36600; 80048; 82803; 85025; 85610; 85730; 86593; 86780; 86850; 86900; 86901